=== PATIENT | male | born 1950 | race Two or more races ===

== ENCOUNTER → 2024-06-07 | Outpatient (CLI) | payer BC, MEDICARE, SELFPAY ==
[2024-06-07 13:20] LABS: Basophils # (Auto) 0.1 Thou/mm3 (0.0-0.2); Basophils % (Auto) 1 % (0-2.5); Eosinophils # (Auto) 0.2 Thou/mm3 (0.0-0.5); Eosinophils % (Auto) 1 % (0-10); Immature Granulocytes % (Auto) 1 % (0-0); Immature Granulocytes Auto 0.07 Thou/mm3 (0.00-0.00); Lymphocytes % (Auto) 19 % (10-50); Mean Corpuscular HGB Conc 33.3 g/dl (31.0-37.0); Mean Corpuscular Hemoglobin 29.8 pg (25.0-35.0); Mean Corpuscular Volume 89 fL (80-100); Monocytes # (Auto) 0.8 Thou/mm3 (0.0-0.8); Monocytes % (Auto) 8 % (0-12); Neutrophils # (Auto) 7.3 Thou/mm3 (1.8-7.7); Neutrophils % (Auto) 70 % (37-80); Nucleated Red Blood Cell % 0 /100 WBC (0); Platelet Count 272 Thou/mm3 (140-440); RDW Standard Deviation 45.8 fL (35.1-43.9); Red Blood Count 4.03 Miln/mm3 (4.50-5.90); White Blood Count 10.5 Thou/mm3 (3.8-10.6)
[2024-06-07 13:35] LABS: Albumin, Serum 4.2 gm/dL (3.4-4.8); Anion Gap 9 (7-16); BUN/Creatinine Ratio 19 Ratio (12-20); Blood Urea Nitrogen 39 mg/dL (9-23); Calcium 9.6 mg/dL (8.3-10.6); Calcium (Corrected) 9.6 mg/dL (8.5-10.1); Carbon Dioxide 22.5 mMol/L (20.0-31.0); Chloride 108 mMol/L (98-107); Creatinine (Component) 2.1 mg/dL (0.6-1.3); Glucose 207 mg/dL (74-106); Osmolality,Calculated 292 (275-295); Phosphorous 3.3 mg/dL (2.4-5.1); Potassium 4.5 mMol/L (3.4-5.1); Sodium 139 mMol/L (136-145); eGFR 32 See Note
== END | disposition home or self-care (01) ==
PROVIDERS: PCP Family Medicine; Referring Provider Internal Medicine; Visit Provider Internal Medicine Cardiovascular Disease
DX: E11.22 Type 2 diabetes mellitus with diabetic chronic kidney disease (principal); N18.4 Chronic kidney disease, stage 4 (severe); I25.10 Atherosclerotic heart disease of native coronary artery without angina pectoris; E83.42 Hypomagnesemia
CPT/HCPCS: 36415; 80069; 85025

== ENCOUNTER 2024-06-17 10:30 | Emergency (ER) | payer BC, MEDICARE, SELFPAY ==
[2024-06-17 10:48] VITALS: BP 123/73; PULSE 107; RESP 19; TEMP 37.1; O2SAT 94
[2024-06-17 11:22] VITALS: BMI 32.8
--- NOTE | 2024-06-17 11:39 | EKG_ITS ---
[facility] Test Date: 2024-06-17 Pat Name: KEVAN LARSEN Department: Room: - Gender: Male Ldr Rn: : 1950 Requested By: Pablo Allen ([facility]) Order Number: [id number] Reading MD: Pablo Allen ([facility]) Measurements Intervals [place] Rate: 96 P: [place]: QRS: -22 QRSD: 92 T: 17 QT: 364 QTc: 460 Interpretive Statements SUPRAVENTRICULAR RHYTHM BORDERLINE LEFT AXIS DEVIATION [QRS AXIS < -20] POSSIBLE LEFT VENTRICULAR HYPERTROPHY [VOLTAGE CRITERIA PLUS LAE OR QRS WIDENING] NONSPECIFIC ST & T-WAVE ABNORMALITY Compared to ECG 04/07/2024 07:34:01 Supraventricular rhythm now present T-wave abnormality now present Sinus tachycardia no longer present ST (T wave) deviation no longer present /store/S0/[id number]/[id number].pdf
--- NOTE | 2024-06-17 11:39 | XR_ITS ---
Examination: PA lateral chest 2 views Technique: Upright PA lateral chest 2 views Exam date and time: June 17, 2024 1148 hrs. Indications: Coughing beginning one week ago. Findings: Early heart failure Mild enlargement cardiac contour Prominent vascular congestion Early septal edema at the lung bases with fluid in the fissures on the lateral view Transvenous dual-chamber bipolar cardiac leads satisfactory position Impression: Early heart failure
--- NOTE | 2024-06-17 11:39 | PD.EDRME ---
Rapid Medical Screening Exam RME Arrival date/time: 06/17/24 10:30 73-year-old male with past medical history of CAD, hyperlipidemia, diabetes, and pacemaker presents emergency department complaining of shortness of breath for several days. Chief Complaint: Shortness of Breath/Dyspnea Time Seen by Provider: 06/17/24 11:34 Vital signs: Vital Signs Temperature 98.7 F 06/17/24 10:48 Pulse Rate 107 H 06/17/24 10:48 Respiratory Rate 19 06/17/24 10:48 Blood Pressure 123/73 06/17/24 10:48 Pulse Oximetry (%) 94 L 06/17/24 10:48 Oxygen Delivery Method Room Air 06/17/24 10:48 Vital signs reviewed by provider: Yes
[2024-06-17 12:41] LABS: Basophils # (Auto) 0.1 Thou/mm3 (0.0-0.2); Basophils % (Auto) 1 % (0-2.5); Eosinophils # (Auto) 0.2 Thou/mm3 (0.0-0.5); Eosinophils % (Auto) 2 % (0-10); Hematocrit 34.5 % (41.0-53.0); Hemoglobin 11.3 g/dL (13.5-16.0); Immature Granulocytes % (Auto) 1 % (0-0); Lymphocytes % (Auto) 10 % (10-50); Mean Corpuscular HGB Conc 32.8 g/dl (31.0-37.0); Mean Corpuscular Hemoglobin 29.3 pg (25.0-35.0); Mean Corpuscular Volume 89 fL (80-100); Monocytes % (Auto) 9 % (0-12); Neutrophils % (Auto) 77 % (37-80); Nucleated Red Blood Cell % 0 /100 WBC (0); Platelet Count 311 Thou/mm3 (140-440); RDW Standard Deviation 46.8 fL (35.1-43.9); Red Blood Count 3.86 Miln/mm3 (4.50-5.90); White Blood Count 10.4 Thou/mm3 (3.8-10.6)
[2024-06-17 12:56] LABS: Alanine Aminotransferase 29 U/L (10-49); Albumin, Serum 4.2 gm/dL (3.4-4.8); Albumin/Globulin Ratio 1.4 (1.2-2.2); Alkaline Phosphatase 117 U/L (46-116); Anion Gap 6 (7-16); Aspartate Amino Transferase 14 U/L (0-34); BUN/Creatinine Ratio 16 Ratio (12-20); Blood Urea Nitrogen 32 mg/dL (9-23); Calcium 9.7 mg/dL (8.3-10.6); Calcium (Corrected) 9.7 mg/dL (8.5-10.1); Carbon Dioxide 25.6 mMol/L (20.0-31.0); Chloride 105 mMol/L (98-107); Estimated Creatinine Clearance 42.7 mL/min (>60); Glucose 281 mg/dL (74-106); Magnesium 1.7 mg/dL (1.6-2.6); Osmolality,Calculated 290 (275-295); Potassium 4.7 mMol/L (3.4-5.1); Sodium 137 mMol/L (136-145); Total Protein 7.2 gm/dL (5.7-8.2); eGFR 34 See Note
[2024-06-17 13:01] LABS: INR 1.1 (0.9-1.3); Partial Thromboplastin Time 29.2 Seconds (22.0-36.0); Prothrombin Time 11.7 Seconds (9.0-12.2); Troponin I 0.202 ng/mL (0.0-0.045)
[2024-06-17 13:03] LABS: B-Type Natriuretic Peptide 282 pg/mL (0-100)
[2024-06-17 13:11] LABS: Collection Type, Urine Clean Catch
--- NOTE | 2024-06-17 13:27 | PD.EDSOB ---
ED SOB =RME/HPI General Chief Complaint: Shortness of Breath/Dyspnea Stated Complaint: SOB, CONSTANT COUGHIN Time Seen by Provider: 06/17/24 11:34 Arrival date/time: 06/17/24 10:30 RME / HPI RME / HPI Narrative: 06/17/24 10:30 HPI Patient: 73-year-old male with a past medical history of coronary artery disease (CAD), chronic kidney disease (CKD), hyperlipidemia, diabetes, and a pacemaker. Chief Complaint: Shortness of breath (SOB) for several days. History: The patient presents to the emergency department with complaints of shortness of breath and orthopnea (difficulty breathing when lying flat) for several days. The patient has been followed by Dr. Hernandez in the past for heart failure management. He reports that he has been out of his heart failure medication Bumetanide 0.5 mg BID for the past week. Was recommended to stop Entresto 2 months ago. Denies any chest pain, fevers, chills, nausea, vomiting, diarrhea, constipation, or urinary symptoms. He reports increased swelling of his legs. Physical examination in the emergency department is unremarkable except for the findings related to his heart failure. Review of Symptoms (ROS): Cardiovascular: Increased shortness of breath, orthopnea, and leg swelling. Respiratory: Shortness of breath. Gastrointestinal: Denies nausea, vomiting, diarrhea, and constipation. Genitourinary: Denies urinary symptoms. General: Denies fevers and chills. Medications: Out of Bumetanide. Related Data Home Medications ?Medication ?Instructions ?Recorded ?Confirmed linagliptin 5 mg tablet (Tradjenta) 5 mg PO QDAY ##0 03/10/17 11/06/23 atorvastatin 80 mg tablet 80 mg PO QDAY 07/15/22 11/06/23 duloxetine 60 mg capsule,delayed 60 mg PO QDAY 07/15/22 11/06/23 release sacubitril 24 mg-valsartan 26 mg 1 tab PO BID 07/15/22 11/06/23 tablet (Entresto) semaglutide 0.25 mg or 0.5 mg (2 0.5 mg subcut QWEEK 07/15/22 11/06/23 mg/1.5 mL) subcutaneous pen injector (Ozempic) ticagrelor 90 mg tablet (Brilinta) 90 mg PO BID 12/28/22 04/20/24 aspirin 81 mg tablet,delayed 81 mg PO QDAY 09/28/22 11/06/23 release metoprolol succinate 50 mg 50 mg PO QDAY 09/28/22 11/06/23 tablet,extended release 24 hr bumetanide 1 mg tablet 1 mg PO QDAY 11/06/23 11/06/23 ferrous sulfate 325 mg (65 mg 325 mg PO QDAY 11/06/23 11/06/23 iron) tablet Previous Rx's ?Medication ?Instructions ?Recorded bumetanide 1 mg tablet 0.5 mg (1/2 x 1 mg) PO QDAY #30 06/17/24 tabs Allergies Allergy/AdvReac Type Severity Reaction Status Date / Time codeine Allergy Hallucinati Verified 04/07/24 07:18 ng Review of Systems Review of Systems Narrative Review of Systems: Gen: No fever, no chills, no weight loss EYES: No discharge, no visual changes, no pain HEENT: No ear pain, no congestion, no sore throat PULM: + shortness of breath, no cough, no congestion CV: No chest pain, no dyspnea on exertion, no palpitations GI: No nausea, no vomiting, no diarrhea, no pain, no constipation : No frequency, no urgency, no dysuria Musc/skel: No joint pain, no back pain Skin: No rash Psyc: No hallucinations, no depression Heme/Lymph: No easy bleeding or bruising tendencies Neuro: No weakness, no headache Past Medical History Past Medical History CARDIAC: Positive Cardiac Disorders, Cardiac Arrhythmia, Angina, Coronary Artery Disease, Congestive Heart Failure, Cardiomyopathy, Edema and Hypertension GASTROINTESTINAL: Positive Obesity GENITOURINARY: Positive Renal Disease MUSCULOSKELETAL: Positive Fractures ENDOCRINE: Positive Diabetes Mellitus Type 2 OTHER HISTORY: Positive Hospitalization Surgical History SURGICAL: Positive Cardiac Surgery, Coronary Stent, Pacemaker and Auto Implanted Cardiovert Defib Social History SMOKING STATUS: Never smoker ED Exam Narrative Physical exam: GEN. APPEARANCE: The patient is alert awake oriented X-3 in mild distress, lying down comfortably, does not look ill/toxic. Patient has good eye contact. Patient is cooperative. VITALS: All vitals were reviewed and the pulse ox is 94% on room air which is normal according to my interpretation. HEENT: Normocephalic, atraumatic. Pupils are equal and reactive. Oral mucosa is moist. Patent Nares NECK: Supple, nontender, no thyromegaly, no meningismus, no JVD, no step offs CHEST: Symmetrical, atraumatic, and with equal expansion , Nontender on palpation no deformity and no crepitus. CARDIOVASCULAR: Heart regular rhythm no murmur or gallop rub or extra beats. LUNGS: Clear to auscultation bilaterally with symmetrical chest rise. No laboring tachypnea or wheezing. No intercostal subcostal retraction. No rales and no rhonchi. ABDOMEN: Soft, flat, nontender to palpation, no guarding or rebound tenderness. There are no abnormal masses palpated. Active and normal bowel sounds. EXTREMITIES: 1+ pitting edema bilateral lower extremities. Nontender. No cyanosis. Patient is able to move all 4 extremities well, with full ROM and good CSM. SKIN: Warm and dry, no jaundice or rashes noted. MUSCULOSKELETAL: No lubar or midline bony tenderness. There is no CVA tenderness. No paraspinal muscle spasm or tenderness. NEURO: Patient is CONTRERAS x 4, Cranial nerves II through XII grossly intact. There is no focal neurologic deficits noted. GCS is 15, PNS and [employer] appear grossly intact. PSYCHIATRIC: Patient is in normal mood and affect, cooperative, no SI or HI or hallucinations. Course Quality Measures none Orders Category Date Time Status Bedside COVID-19 Antigen Test NOW Care 06/17/24 11:39 Active Bedside Influenza A&B Antigen Test NOW Care 06/17/24 11:39 Completed EKG (ED ONLY) *Do not use* NOW Care 06/17/24 11:39 Completed EKG (ED Only) Stat Exams 06/17/24 11:39 Draft XR chest 2V Stat Exams 06/17/24 11:39 Completed B-Type Natriuretic Peptide Stat Lab 06/17/24 12:01 Completed CBC Stat Lab 06/17/24 12:01 Completed Comprehensive Metabolic Panel Stat Lab 06/17/24 12:01 Completed Drug Screen,Urine Stat Lab 06/17/24 12:28 Completed Magnesium Stat Lab 06/17/24 12:01 Completed Partial Thromboplastin Time Stat Lab 06/17/24 12:01 Completed Prothrombin Time with INR Stat Lab 06/17/24 12:01 Completed Troponin I Stat Lab 06/17/24 12:01 Completed Urinalysis Stat Lab 06/17/24 12:28 Completed Bumetanide Inj [Bumex Inj] Med 06/17/24 13:25 Discontinued 2 mg IVP X1 ONE Vital Signs Vital signs: Vital Signs Temperature 98.7 F 06/17/24 10:48 Pulse Rate 107 H 06/17/24 10:48 Respiratory Rate 19 06/17/24 10:48 Blood Pressure 123/73 06/17/24 10:48 Pulse Oximetry (%) 94 L 06/17/24 10:48 Oxygen Delivery Method Room Air 06/17/24 10:48 Shortness of Breath / Dyspnea MDM Narrative MDM Narrative:: [facility] EKG Findings: The patient's EKG is nonischemic. Troponin Levels: Troponin is slightly elevated compared to his baseline, but the patient is not experiencing any chest pain. Treatment: The patient was diuresed in the emergency department with 2 mg of Bumetanide and reports feeling much better. Cardiology Consultation: Attempts to contact Dr. Hernandez, the patient's tumor registrar, were unsuccessful due to the holiday weekend. Consulted with Dr. House, who agreed that the slightly elevated troponin is not a major concern and the patient can be discharged. Discharge Plan: The patient will be discharged with a new prescription for Bumetanide. His creatinine levels are better than his baseline. Chest x-ray findings are consistent with early congestive heart failure (CHF). Patient data External records reviewed:: [facility] previous records Clinical information provided by:: patient Social determinants that could affect healthcare access:: none Patient has the following chronic illnesses:: CHF, hypertension, diabetes How is presenting disease/condition affected by chronic disease/condition?: caused by Evaluation data The following diagnostics were reviewed and interpreted by me:: lab results, radiology exam(s) and EKG tracing(s) Lab and/or radiology exams considered but not ordered:: See [facility] Interpretation Summary: See [facility] Medications / Prescriptions Medications or Prescriptions considered but not ordered:: Not applicable Medication administrations:: Medication Administration History Discontinued Medications Bumetanide (Bumetanide Inj 0.25 Mg/Ml Vial 4 Ml) 2 mg IVP X1 ONE Stop: 06/17/24 13:26 Last Admin: 06/17/24 13:39 Dose: 2 mg Documented By: MP Noted Consultations Consultation(s) initiated? (list below): Yes Consultation #1 (Physician, Specialty, Details): See above Diagnosis Shortness of Breath Differential Diagnosis: acute exacerbation of chronic obstructive airways disease and congestive heart failure Most likely diagnosis given after review of the tests above:: CHF exacerbation Admission Indicated Admission indicated?: not indicated Admission Request Was there a request for admission?: No Disposition Plan Disposition Plan: Discharge Discharge Attestation Discharge Attestation: The patient and all family members were given an opportunity to ask questions and understood the discharge instructions. Discharge instructions specifically effects, indications for sooner follow up or return to the emergency department, and the expected course of current diagnosis. Patient condition: Stable Discharge Plan Plan Patient Disposition: HOME (Self Care) Patient condition on transfer: Stable Prescriptions/Referrals Prescriptions/Med Rec: New bumetanide 1 mg tablet 0.5 mg PO QDAY Qty: 30 0RF No Action Tradjenta 5 MG tablet 5 mg PO QDAY Qty: 0 bumetanide 1 mg tablet 1 mg PO QDAY Patient Comments: take 1 tablet by mouth twice a day ferrous sulfate 325 mg (65 mg iron) Tablet 325 mg PO QDAY atorvastatin 80 mg tablet 80 mg PO QDAY duloxetine 60 mg capsule,delayed release(DR/EC) 60 mg PO QDAY Brilinta 90 mg tablet 90 mg PO BID Entresto 24-26 mg tablet 1 tab PO BID Patient Comments: take 1 tablet by mouth twice a day Ozempic 0.25 mg or 0.5 mg(2 mg/1.5 mL) pen injector 0.5 mg SUBCUT QWEEK Patient Comments: inject 0.5 milligrams subcutaneously every week metoprolol succinate 50 mg tablet extended release 24 hr 50 mg PO QDAY aspirin 81 mg Tablet,Delayed Release (Dr/Ec) 81 mg PO QDAY Referrals: Dre Leonard MD [Primary Care Provider] - In 1 week Problem List Clinical Impression: Congestive heart failure Patient/Caregiver Discharge Instructions Education Materials: Coping with Heart Failure Print Language: Nauruan Stand Alone Forms: [facility]sa Award Info., Patient Portal Info Letter
[2024-06-17 13:30] VITALS: BP 145/80; PULSE 94; RESP 22; TEMP 37.1; O2SAT 95
[2024-06-17 13:39] VITALS: BP 145/80; PULSE 97
[2024-06-17] MEDS: BUMETANIDE INJ 0.25 MG/ML VIAL 4 ML 2 MG IVP (13:39)
[2024-06-17 13:58] LABS: Bacteria,Urine 3+; Bilirubin,Urine Negative (Negative); Blood,Urine Negative (Negative); Clarity,Urine Turbid (Clear/Hazy); Color,Urine Lt-Yellow (Lt Yel-Yel); Glucose, Urine 2+ (Negative); Ketones,Urine Negative (Negative); Leukocyte Esterase,Urine Positive (Negative); Nitrite,Urine Negative (Negative); Protein,Urine 1+ (Neg - Trace); RBC,Urine 6 /hpf (0-3); Specific Gravity,Urine 1.015 (1.001-1.035); Squamous Epithelial Cell,Urine < 1 /hpf (0-5); Urobilinogen,Urine Negative mg/dL (0.0-1.0); WBC,Urine 219 /hpf (0-5)
[2024-06-17 15:01] LABS: Amphetamine/Methamp Scrn,U Negative (Negative); Barbiturate Screen,Urine Negative (Negative); Benzodiazepines Screen,Urine Negative (Negative); Benzoylecgonine Screen, Ur Negative (Negative); Fentanyl Screen,Urine Negative (Negative); Opiate Screen,Urine Negative (Negative); THC Screen,Urine Negative (Negative)
[2024-06-17 15:54] VITALS: BP 119/67; PULSE 95; RESP 15; TEMP 37.3; O2SAT 94
== END 2024-06-17 17:11 | disposition home or self-care (01) ==
PROVIDERS: Emergency Provider Emergency Medicine; PCP Family Medicine
DX: I50.9 Heart failure, unspecified (principal); I25.10 Atherosclerotic heart disease of native coronary artery without angina pectoris; E11.22 Type 2 diabetes mellitus with diabetic chronic kidney disease; N18.9 Chronic kidney disease, unspecified; Z79.85 Long-term (current) use of injectable non-insulin antidiabetic drugs; Z79.84 Long term (current) use of oral hypoglycemic drugs; E78.5 Hyperlipidemia, unspecified
CPT/HCPCS: 36415; 71046; 80053; 80307; 81001; 83735; 83880; 84484; 85025; 85610; 85730; 87400; 87811; 93005; 99284; J3490

== ENCOUNTER 2024-06-22 09:53 | Inpatient (IN) | payer BC, MEDICARE, SELFPAY ==
[2024-06-22] VITALS (13 sets, daily range): BP systolic 125–173; BP diastolic 70–99; PULSE 92–993; RESP 17–88; TEMP 36.7–37.1; O2SAT 90–96; BMI 32.8
--- NOTE | 2024-06-22 11:06 | PD.EDADULT ---
ED General RME/HPI General Chief complaint: Shortness of Breath/Dyspnea Stated complaint: SOB since this morning Time Seen by Provider: 06/22/24 09:57 Arrival date/time: 06/22/24 09:53 RME / HPI RME / HPI narrative: A pleasant 73-year-old male with longstanding history of ischemic cardiomyopathy, chronic systolic heart failure, ICD implantation, s/p multivessel PCI stent placement to left anterior descending artery, presents to the ED on 06/22/24 brought in by family for increasing shortness of breath x4. Patient states that SOB is associated with chest pressure. Patient states the chest pressure started in the morning on 06/22/24. Chest pain was severe and he felt like he was drowning . He failed to take his Bumex for about 3 weeks until this past Wednesday when he got his prescription of Bumex. He did not take his diuretic bc pharmacy did not have it in stock. Patient recently had an ED visit for the same symptoms of shortness of breath on 06/17/24 for not taking his home bumex because he ran out. Patient requires more than 2 pillows at night to sleep. His chest pressure is non-exertional. Patient denies headache, fever, chills, palpitation,nausea, vomiting. Denies radiation to the neck or arms. Allergies: None, medications: Brillanta, metoprolol, aspirin, iron, amlodipine, lisinopril, spironolactone. Family hx: Hypertension and diabetes- mother and father. Surgical hx: AICD and stent placement. Social hx: alcohol use-40 years total (one bottle of wine per week). MD complaint: SOB Onset (ago): day(s) Location: chest Radiation: non-radiation Severity: moderate Consistency: intermittent Relieving factors: none Associated symptoms: cough (dry ) Related Data Home Medications ?Medication ?Instructions ?Recorded ?Confirmed atorvastatin 80 mg tablet 80 mg PO QDAY 07/15/22 07/06/24 semaglutide 0.25 mg or 0.5 mg (2 0.5 mg subcut QWEEK 07/15/22 07/06/24 mg/1.5 mL) subcutaneous pen injector (Ozempic) ferrous sulfate 325 mg (65 mg 325 mg PO QDAY 11/06/23 07/06/24 iron) tablet magnesium oxide 400 mg PO QDAY 07/06/24 07/06/24 Previous Rx's ?Medication ?Instructions ?Recorded spironolactone 25 mg tablet 25 mg PO QDAY 30 days #30 tabs 06/24/24 Allergies Allergy/AdvReac Type Severity Reaction Status Date / Time codeine Allergy Hallucinati Verified 07/06/24 08:09 cinthya Review of Systems Review of Systems Systems Reviewed: All systems reviewed, normal except as documented Past Medical History Past Medical History CARDIAC: Positive Cardiac Disorders, Cardiac Arrhythmia, Angina, Coronary Artery Disease, Congestive Heart Failure, Cardiomyopathy, Edema and Hypertension GASTROINTESTINAL: Positive Obesity GENITOURINARY: Positive Renal Disease MUSCULOSKELETAL: Positive Fractures ENDOCRINE: Positive Diabetes Mellitus Type 2 OTHER HISTORY: Positive Hospitalization Surgical History SURGICAL: Positive Cardiac Surgery, Coronary Stent, Pacemaker and Auto Implanted Cardiovert Defib Social History SMOKING STATUS: Never smoker ED Exam Narrative Physical exam: GENERAL APPEARANCE: generally well-appearing, no acute distress on 3 L NC. HEENT: NC, AT. MMM. EOMI, clear conjunctiva, oropharynx clear. NECK: Supple without lymphadenopathy. No stiffness or restricted ROM. HEART: Tachycardia, normal S1/S1, no m/r/g. +JVD. LUNGS: CTAB, moving air well. No wheezes are heard. Diminished crackles lower lungs b/l. ABDOMEN: Soft, nontender, nondistended. BACK: No midline C/T/L spine pain or deformity. EXTREMITIES: Without cyanosis, clubbing. No edema. NEUROLOGICAL: Alert and oriented, moving all 4 extremities. ROM intact. Skin: Warm and dry,Vitiligo Course Quality Measures none Orders Category Date Time Status EKG (ED ONLY) *Do not use* NOW Care 06/22/24 09:57 Completed Consult to Cardiology Stat Cons 06/22/24 16:05 Ordered CXR2 [XR chest 2V] Stat Exams 06/22/24 15:58 Completed EKG (ED Only) Stat Exams 06/22/24 09:57 Ordered Comprehensive Metabolic Panel Stat Lab 06/22/24 11:38 Completed Troponin I Stat Lab 06/22/24 11:38 Completed Furosemide Inj [Lasix Inj] Med 06/22/24 11:38 Discontinued 40 mg IVP X1 ONE Furosemide Inj [Lasix Inj] Med 06/22/24 13:16 Discontinued 40 mg IVP X1 ONE Nitroglycerin Oint 2% [Nitro-paste Oint 2%] Med 06/22/24 16:03 Discontinued 1 inch TOP X1 ONE Vital Signs Vital signs: Vital Signs Temperature 98.7 F 06/22/24 10:27 Pulse Rate 100 06/22/24 10:27 Respiratory Rate 24 H 06/22/24 10:27 Blood Pressure 127/72 06/22/24 10:27 Pulse Oximetry (%) 92 L 06/22/24 10:27 Oxygen Delivery Method Nasal Cannula 06/22/24 10:27 Oxygen Flow Rate 4 06/22/24 10:27 [facility] Patient data External records reviewed:: None Clinical information provided by:: patient Social determinants that could affect healthcare access:: none Patient has the following chronic illnesses:: 73-year-old male with longstanding history of ischemic cardiomyopathy, chronic systolic heart failure, ICD implantation, s/p multivessel PCI stent placement to left anterior descending artery How is presenting disease/condition affected by chronic disease/condition?: exacerbated by Evaluation data The following diagnostics were reviewed and interpreted by me:: lab results Lab and/or radiology exams considered but not ordered:: N/A Interpretation Summary: Troponin 0.075. Creatinine 2.2. CXR pending Medications Medications considered but not ordered:: None Medication administrations:: Medication Administration History Discontinued Medications Acetaminophen (Acetaminophen 325 Mg Tablet) 650 mg PO Q6H PRN PRN Reason: Fever >100.4 Stop: 07/22/24 16:52 Acetaminophen (Acetaminophen 325 Mg Tablet) 650 mg PO Q6H PRN PRN Reason: PAIN SCALE 1-3 (mild Stop: 07/22/24 16:52 Amlodipine Besylate (Amlodipine Besylate 5 Mg Tablet) 5 mg PO DAILY [facility] Stop: 07/22/24 17:29 Last Admin: 06/24/24 09:32 Dose: 5 mg Documented By: Admin: 06/23/24 09:09 Dose: 5 mg Documented By: Admin: 06/22/24 20:06 Dose: 5 mg Documented By: CHRISTINA Comments: Given late 2/T being ordered on previous shift. Amoxicillin (Amoxicillin 250 Mg Capsule) 250 mg PO TID [facility] Stop: 06/27/24 09:14 Amoxicillin (Amoxicillin 250 Mg Capsule) 500 mg PO TID [facility] Stop: 06/30/24 09:14 Last Admin: 06/24/24 13:29 Dose: 500 mg Documented By: Admin: 06/24/24 05:13 Dose: 500 mg Documented By: Admin: 06/23/24 21:23 Dose: 500 mg Documented By: Admin: 06/23/24 13:39 Dose: Not Given Documented By: ALEKS Non-Admin Reason: first dose started at 1127 Admin: 06/23/24 11:27 Dose: 500 mg Documented By: ALEKS Aspirin (Aspirin Ec 81 Mg Tabec) 81 mg PO DAILY [facility] Stop: 07/22/24 17:44 Last Admin: 06/24/24 09:32 Dose: 81 mg Documented By: Admin: 06/23/24 09:09 Dose: 81 mg Documented By: Admin: 06/22/24 20:05 Dose: 81 mg Documented By: CHRISTINA Comments: Given late 2/T being ordered on previous shift. Atorvastatin Calcium (Atorvastatin Calcium 20 Mg Tablet) 80 mg PO HS [facility] Stop: 07/22/24 20:59 Last Admin: 06/23/24 20:11 Dose: 80 mg Documented By: Admin: 06/22/24 20:06 Dose: 80 mg Documented By: CHRISTINA Bumetanide (Bumetanide Inj 0.25 Mg/Ml Vial 4 Ml) 1 mg IVP BID [facility] Stop: 07/22/24 20:59 Last Admin: 06/23/24 09:10 Dose: 1 mg Documented By: Admin: 06/22/24 20:07 Dose: 1 mg Documented By: CHRISTINA Bumetanide (Bumetanide Inj 0.25 Mg/Ml Vial 4 Ml) 2 mg IVP QDAY [facility] Stop: 07/24/24 08:59 Bumetanide (Bumetanide 0.5 Mg Tablet) 2 mg PO DAILY [facility] Stop: 07/24/24 08:59 Last Admin: 06/24/24 09:31 Dose: 2 mg Documented By: LOTTIE Dextrose (Dextrose 50%-Water Inj 50 Ml Syringe) 25 ml IV Q15MIN PRN PRN Reason: BG 50-70 responsive npo pt Stop: 07/22/24 17:47 Dextrose (Dextrose 50%-Water Inj 50 Ml Syringe) 50 ml IV Q15MIN PRN PRN Reason: BG <50 OR BG <70 & pt unresponsive Stop: 07/22/24 17:47 Duloxetine HCl (Duloxetine Hcl 30 Mg Capsule) 60 mg PO QDAY [facility] Stop: 07/22/24 17:44 Last Admin: 06/23/24 09:09 Dose: 60 mg Documented By: Admin: 06/22/24 20:04 Dose: 60 mg Documented By: CHRISTINA Comments: Given late 2/T being ordered on previous shift. Duloxetine HCl (Duloxetine Hcl 30 Mg Capsule) 30 mg PO BID [facility] Stop: 07/24/24 08:59 Last Admin: 06/24/24 09:31 Dose: 30 mg Documented By: LOTTIE Furosemide (Furosemide Inj 10 Mg/Ml 4ml Vial) 40 mg IVP X1 ONE Stop: 06/22/24 11:39 Last Admin: 06/22/24 12:41 Dose: 40 mg Documented By: MIGUEL Furosemide (Furosemide Inj 10 Mg/Ml 4ml Vial) 40 mg IVP X1 ONE Stop: 06/22/24 13:17 Last Admin: 06/22/24 13:48 Dose: 40 mg Documented By: NAVEED Furosemide (Furosemide Inj 10 Mg/Ml 4ml Vial) 40 mg IVP BID [facility] Stop: 07/22/24 20:59 Glucagon (Glucagon Inj 1 Mg Vial) 1 mg IM Q15MIN PRN PRN Reason: BG <70, and no IV access Heparin Sodium (Porcine) (Heparin Sod Inj 5000 Unit/Ml Vial) 5,000 unit SC Q8HR [facility] Stop: 07/07/24 05:59 Last Admin: 06/24/24 13:30 Dose: 5,000 unit Documented By: LOTTIE Co-signed By: VL Admin: 06/24/24 05:13 Dose: 5,000 unit Documented By: Co-signed By: YVES Admin: 06/23/24 21:24 Dose: 5,000 unit Documented By: Co-signed By: BR Admin: 06/23/24 13:35 Dose: 5,000 unit Documented By: ALEKS Co-signed By: VA Admin: 06/23/24 05:05 Dose: 5,000 unit Documented By: CHRISTINA Co-signed By: NL Insulin Human Lispro (Insulin Lispro (Admelog) 1 Unit/0.01 Ml Unit) 0 unit SC ACHS [facility]; Protocol Stop: 07/22/24 20:59 Last Admin: 06/24/24 17:45 Dose: Not Given Documented By: LOTTIE Non-Admin Reason: Patient Refused Admin: 06/24/24 12:12 Dose: 6 unit Documented By: LOTTIE Co-signed By: JOYCE Admin: 06/24/24 07:54 Dose: 4 unit Documented By: LOTTIE Co-signed By: JOYCE Admin: 06/23/24 20:17 Dose: 6 unit Documented By: Co-signed By: JOANNE Admin: 06/23/24 17:37 Dose: 4 unit Documented By: ALEKS Co-signed By: PP Admin: 06/23/24 12:14 Dose: 4 unit Documented By: ALEKS Co-signed By: ER Admin: 06/23/24 07:33 Dose: 2 unit Documented By: ALEKS Co-signed By: PP Admin: 06/22/24 20:14 Dose: 6 unit Documented By: CHRISTINA Co-signed By: YESSICA Magnesium Hydroxide (Milk Of Magnesia Susp 30 Ml Udc) 30 ml PO QDAY PRN; Protocol PRN Reason: CONSTIPATION Stop: 07/22/24 16:52 Nitroglycerin (Nitroglycerin Oint 2% 1 Inch Packet) 1 inch TOP X1 ONE Stop: 06/22/24 16:04 Last Admin: 06/22/24 16:11 Dose: 1 inch Documented By: MIGUEL Pantoprazole Sodium (Pantoprazole 40 Mg Tablet) 40 mg PO QDAY [facility] Stop: 07/23/24 08:59 Last Admin: 06/24/24 09:32 Dose: 40 mg Documented By: Admin: 06/23/24 09:09 Dose: 40 mg Documented By: ALEKS Sacubitril/Valsartan (Sacubitril 24 Mg/Valsartan 26 Mg Tablet) 1 tab PO BID [facility] Stop: 07/23/24 20:59 Last Admin: 06/24/24 09:32 Dose: 1 tab Documented By: Admin: 06/23/24 20:11 Dose: 1 tab Documented By: Sacubitril/Valsartan (Sacubitril 24 Mg/Valsartan 26 Mg Tablet) 1 tab PO X1 ONE Stop: 06/24/24 17:34 Last Admin: 06/24/24 17:36 Dose: 1 tab Documented By: LOTTIE Spironolactone (Spironolactone 25 Mg Tablet) 25 mg PO QDAY [facility] Stop: 07/23/24 08:59 Last Admin: 06/24/24 09:32 Dose: 25 mg Documented By: Admin: 06/23/24 09:10 Dose: 25 mg Documented By: ALEKS Ticagrelor (Ticagrelor 90 Mg Tablet) 90 mg PO BID [facility] Stop: 07/23/24 08:59 Last Admin: 06/24/24 09:32 Dose: 90 mg Documented By: Admin: 06/23/24 20:10 Dose: 90 mg Documented By: Admin: 06/23/24 09:13 Dose: 90 mg Documented By: ALEKS Lasix Consultations Consultation(s) initiated? (list below): Yes Consultation #1 (Physician, Specialty, Details): Dr. Hernandez, cardiology Diagnosis Differential Diagnosis ED Complaint MDM: pneumonia Most likely diagnosis given after review of the tests above:: CHF exacerbation Admission Indicated Admission indicated?: not indicated Explain why admission is indicated or not indicated:: Patient was recently in the hospital for similar presentation. He was given bumex. Now giving patient Lasix, patient has good urine output and feels relief. No longer experiences chest pain or dry cough. Therefore, acutely symptom relief is present. However, when taken off the oxygen patient desaturated to 84% and cough returned. Admission Request Was there a request for admission?: No Disposition Plan Disposition Plan: Admit Medical Decision Making MDM Narrative MDM Narrative: 73-year-old male with longstanding history of ischemic cardiomyopathy, chronic systolic heart failure, ICD implantation, s/p multivessel PCI stent placement to left anterior descending artery, presents to the ED on 06/22/24 brought in by family for increasing shortness of breath x4. Patient states that SOB is associated with chest pressure. Patient states the chest pressure started in the morning on 06/22/24. Chest pain was severe and he felt like he was drowning . Patient requires more than 2 pillows at night to sleep. His chest pressure is non-exertional. Symptomatic heart failure exacerbation is his current presentation. Patient is given lasix today and he has good urine output with symptomatic relief in chest pressure and cough-- both now resolving. Patient desaturated to 84% on room air and cough returned. Differential Diagnosis Differential Diagnosis: pneumonia Medical Records Medical records reviewed: Yes I reviewed the patient's medical records. Lab Data Lab results reviewed: Yes I reviewed the patient's lab results. 06/24/24 04:51 06/24/24 04:51 Labs: Lab Results 06/22/24 Range/Units 11:38 Sodium 138 (136-145) mMol/L Potassium 4.0 (3.4-5.1) mMol/L Chloride 104 (98-107) mMol/L Carbon Dioxide 24.8 (20.0-31.0) mMol/L Anion Gap 9 (7-16) BUN 29 H (9-23) mg/dL Creatinine 2.2 H (0.6-1.3) mg/dL Estim Creat Clear Calc 38.8 L (>60) mL/min eGFR 31 L (60 - ) See Note BUN/Creatinine Ratio 13 (12-20) Ratio Glucose 227 H (74-106) mg/dL Calculated Osmolality 288 (275-295) Calcium 9.3 (8.3-10.6) mg/dL Corrected Calcium 9.3 (8.5-10.1) mg/dL Total Bilirubin 1.0 (0.3-1.2) mg/dL AST 10 (0-34) U/L ALT 18 (10-49) U/L Alkaline Phosphatase 105 (46-116) U/L Troponin I 0.075 H* (0.0-0.045) ng/mL Total Protein 7.0 (5.7-8.2) gm/dL Albumin 4.0 (3.4-4.8) gm/dL Globulin 3.0 (2.3-3.5) gm/dL Albumin/Globulin Ratio 1.3 (1.2-2.2) Discharge Plan Plan Patient Disposition: Admit Acute Care w/in Hospital Patient condition on transfer: Stable Problem List Clinical Impression: CHF (congestive heart failure) Patient/Caregiver Discharge Instructions Discharge Activity: activity as tolerated MD Attestation MD Attestation The patient was seen by the PGY-2. I, the supervising physician, also encountered and examined the patient and remained present during the residents ER encounter. Working with the PGY-2 the work-up, treatment, medical decision making, and documentation was formulated. I agree with the plan and documentation.
[2024-06-22 12:10] LABS: Troponin I 0.075 ng/mL (0.0-0.045)
[2024-06-22] MEDS: FUROSEMIDE INJ 10 MG/ML 4ML VIAL 40 MG IVP ×2 (12:41→13:48)
[2024-06-22 13:30] LABS: Alanine Aminotransferase 18 U/L (10-49); Albumin/Globulin Ratio 1.3 (1.2-2.2); Alkaline Phosphatase 105 U/L (46-116); Anion Gap 9 (7-16); Aspartate Amino Transferase 10 U/L (0-34); BUN/Creatinine Ratio 13 Ratio (12-20); Blood Urea Nitrogen 29 mg/dL (9-23); Calcium 9.3 mg/dL (8.3-10.6); Calcium (Corrected) 9.3 mg/dL (8.5-10.1); Carbon Dioxide 24.8 mMol/L (20.0-31.0); Chloride 104 mMol/L (98-107); Creatinine (Component) 2.2 mg/dL (0.6-1.3); Estimated Creatinine Clearance 38.8 mL/min (>60); Glucose 227 mg/dL (74-106); Osmolality,Calculated 288 (275-295); Sodium 138 mMol/L (136-145); eGFR 31 See Note
--- NOTE | 2024-06-22 15:58 | XR_ITS ---
Examination: AP chest single view Technique one AP portable upright chest single view Exam date and time: 2023 at 1620 hours Comparison June 17, 2024 INDICATIONS: Onset SOB today. FINDINGS: Pneumonia left base obscuring detail left hemidiaphragm Cardiac lead satisfactory position Mild prominence left ventricle Mild vascular congestion IMPRESSION: Left base pneumonia
[2024-06-22] MEDS: NITROGLYCERIN OINT 2% 1 INCH PACKET TOP (16:11)
--- NOTE | 2024-06-22 17:00 | ESHP_ITS ---
Documentation for date of: 06/22/24 [facility] History of Present Illness History of present illness: This is a 69-year-old male with PMHx of dilated cardiomyopathy, HFrEF EF 25% 10/2023, ICD implantation, CAD s/p multiple stenting, CKD stage IIIB, presented to ED with 4 days of SOB, associated orthopnea, requiring 2 pillows. Patient admits to dry cough with pleuritic chest pain over the last few days which has resolvedy. Patient on home BUMEX 1 mg daily, however his pharmacy has been out for the last month. Recently presented to ED on 05/25/2024 with similar symptoms, patient was diuresed and sent home on BUMEX which she has been taking daily. However he is experiencing persistent SOB. Denies fever, headaches, cardiogenic chest pain, productive cough, nausea, vomiting, diarrhea, or urinary symptoms. Denies tobacco use. Previously social drinker, quit alcohol 5 years ago. Denies drug use. ED course Afebrile, BP 127/72, HR 100, RR 24, satting 92 on 4 L NC, found desatting to 80s on room air BUN 29, creatinine 2.2 (near baseline), GLUCOSE 227, BNP 282, troponin 0.202 then 0.075 No leukocytosis, hemoglobin 11.3 near baseline Patient started on diuresis, with good urine output. Chest x-ray was taken after diuresis without pleural effusion or congestion. Cardiology, Dr. Hernandez, was consulted who recommended admission for aggressive diuresis given persistent shortness of breath on room air. Will admit patient for further management. Exam Vital Signs Temp Pulse Resp BP Pulse Ox O2 Del Method O2 Flow Rate 98.4 F 102 H 20 134/76 H 93 L Nasal Cannula 4 06/22/24 15:28 06/22/24 16:11 06/22/24 15:28 06/22/24 16:11 06/22/24 15:28 06/22/24 15:28 06/22/24 15:28 FiO2 4 06/22/24 11:17 Results: Labs 06/23/24 04:44 06/22/24 11:38 Labs: BMP 06/22/24 11:38 Sodium 138 Potassium 4.0 Chloride 104 Carbon Dioxide 24.8 BUN 29 H Creatinine 2.2 H Glucose 227 H Calcium 9.3 Cardiac Enzymes 06/22/24 Range/Units 11:38 Troponin I 0.075 H* (0.0-0.045) ng/mL Liver Function 06/22/24 Range/Units 11:38 Total Bilirubin 1.0 (0.3-1.2) mg/dL AST 10 (0-34) U/L ALT 18 (10-49) U/L Alkaline Phosphatase 105 (46-116) U/L Albumin 4.0 (3.4-4.8) gm/dL Quality Measures Quality Measures none Advance care planning discussed with:: patient Medications Home Medications and Allergies Home Medications ?Medication ?Instructions ?Recorded ?Confirmed ?Type linagliptin 5 mg tablet (Tradjenta) 5 mg PO QDAY ##0 03/10/17 06/22/24 History atorvastatin 80 mg tablet 80 mg PO QDAY 07/15/22 06/22/24 History duloxetine 60 mg capsule,delayed 60 mg PO QDAY 07/15/22 06/22/24 History release semaglutide 0.25 mg or 0.5 mg (2 0.5 mg subcut QWEEK 07/15/22 06/22/24 History mg/1.5 mL) subcutaneous pen injector ([employer]) ticagrelor 90 mg tablet (Brilinta) 90 mg PO BID 07/15/22 06/22/24 History aspirin 81 mg tablet,delayed 81 mg PO QDAY 09/28/22 06/22/24 History release metoprolol succinate 50 mg 50 mg PO QDAY 09/28/22 06/22/24 History tablet,extended release 24 hr bumetanide 1 mg tablet 1 mg PO QDAY 11/06/23 06/22/24 History ferrous sulfate 325 mg (65 mg 325 mg PO QDAY 11/06/23 06/22/24 History iron) tablet Allergies Allergy/AdvReac Type Severity Reaction Status Date / Time codeine Allergy Hallucinati Verified 04/07/24 07:18 ng Visit Medications Acetaminophen (Acetaminophen 325 Mg Tablet) 650 mg PO Q6H PRN PRN Reason: Fever >100.4 Stop: 07/22/24 16:52 Acetaminophen (Acetaminophen 325 Mg Tablet) 650 mg PO Q6H PRN PRN Reason: PAIN SCALE 1-3 (mild Stop: 07/22/24 16:52 Furosemide (Furosemide Inj 10 Mg/Ml 4ml Vial) 40 mg IVP BID NANI Stop: 07/22/24 20:59 Heparin Sodium (Porcine) (Heparin Sod Inj 5000 Unit/Ml Vial) 5,000 unit SC Q8HR [facility] Stop: 07/07/24 05:59 Magnesium Hydroxide (Milk Of Magnesia Susp 30 Ml Udc) 30 ml PO QDAY PRN; Protocol PRN Reason: CONSTIPATION Stop: 07/22/24 16:52 Pantoprazole Sodium (Pantoprazole 40 Mg Tablet) 40 mg PO QDAY [facility] Stop: 07/23/24 08:59 Discontinued Medications Furosemide (Furosemide Inj 10 Mg/Ml 4ml Vial) 40 mg IVP X1 ONE Stop: 06/22/24 11:39 Last Admin: 06/22/24 12:41 Dose: 40 mg Furosemide (Furosemide Inj 10 Mg/Ml 4ml Vial) 40 mg IVP X1 ONE Stop: 06/22/24 13:17 Last Admin: 06/22/24 13:48 Dose: 40 mg Nitroglycerin (Nitroglycerin Oint 2% 1 Inch Packet) 1 inch TOP X1 ONE Stop: 06/22/24 16:04 Last Admin: 06/22/24 16:11 Dose: 1 inch Assessment & Plan Plan In summary: Patient admitted for CHF exacerbation, and started on LASIX 40 mg IV BID. He has a history of dilated cardiomyopathy, HFrEF EF 25% 10/2023, ICD implantation, CAD s/p multiple stenting, CKD stage IIIB. Dr. Hernandez following, appreciate recommendations. # Acute exacerbation of systolic heart failure, HFrEF EF 25% # Dilated cardiomyopathy # S/p ICD implantation Presented with worsening SOB and orthopnea. Patient has been out of home DIURETICS for 1 month, however restarted his meds 5 days ago but has persistent SOB. In ED patient desatting to 80s on room air CXR after diuresis showed cardiomegaly, without congestion or effusion BNP 282 from 06/17/2024 ? Started BUMEX 1 mg BID ? Resumed home SPIRONOLACTONE 25 mg daily ? Resumed home METOPROLOL SUCCINATE 50 mg daily ? Fluid restriction <1200 cc ? Strict DUGLAS's ? Oxygen as needed ? Cardiac diet ? Trend creatinine # Transient NSTEMI type II # CAD s/p multiple stents # Hyperlipidemia Presented with troponin 0.202, likely demand ischemia Troponin downtrending, now 0.075 Admits to pleuritic chest pain over the last several days, improved Currently denies chest pain TSH 0.34 from 10/2023, A1c 7.4 from 2022, LDL 66 from 2022 Preferred target LDL less than 55 given diabetes and cardiomyopathy ? Telemetry bed ? Resumed home BRILINTA 90 mg daily ? Resumed home ASPIRIN 81 mg daily ? Resumed home ATORVASTATIN 80 mg ? Follow-up lipid panel ? Follow-up TSH ? Follow-up A1c # Primary hypertension # Sinus Tachycardia BP 134/76, HR 102 Tachycardia likely 2/2 oxygen demand Anticipate improving with oxygenation and CHF management ? Resumed home ATORVASTATIN 80 mg ? Resumed home LISINOPRIL 2.5 mg daily ? Resumed home AMLODIPINE 5 mg daily ? Telemetry # Mild JOSÉ ANTONIO on CKD stage IIIb Presented CR 2.2, most recent CR 2.0 from 06/17, however baseline around 2.5 Likely prerenal JOSÉ ANTONIO Anticipate improvement with diuresis ? Daily CBC ? Avoid overdiuresis ? Avoid nephrotoxic agents # Chronic normocytic anemia Likely related to CKD Hemoglobin 11.3, near baseline No signs or symptoms of bleeding ? Daily CBC # T2DM, non-insulin Patient on home TRADJENTA 5 mg daily, diagnosed 4 years ago A1c 7.4 from 2022 ? Holding TRADJENTA ? INSULIN sliding scale ? Follow-up repeat A1c # Anxiety ? Resumed home DULOXETINE 60 mg daily Health maintenance Diet: Cardiac GI prophylaxis: PROTONIX DVT prophylaxis: HEPARIN subcu Antibiotics: Not indicated CODE STATUS: Full code Disposition: Pending SOB improvement Patient case was discussed with attending, Cleveland Gray MD and senior residents Dr. Phoenix and Dr. Hinton. Wandy Henriquez, PGYI L Mr Ruiz is a 69-year-old male with PMHx of dilated cardiomyopathy, HFrEF EF 25% (10/2023), AICD implantation, CAD s/p multiple stenting and CKD stage IIIB. who is admitted for acute decompensation of chronic systolic heart failure, LVEF 25% as of October 2023. Dr Hernandez is consulted and recommendations appreciated. Patient was unable to get his Bumex from his pharmacy. He likely has the exacerbation as he has been off of Bumex for these 3 weeks. NYHA : Stage B , Class II. CXR on 06/17 and today consistent with CHF exacerbation. On oxygen víctor NC. Plan: Started IV Bumex 1mg BID, strict input/output charting, daily weight recording, cardiac low carb diet with fluid restriction to 1.5L Patient examined and case discussed with the team including attending physician. Note reviewed, I agree with the care plan as documented. - Dallas Hinton MD, PGY 2 Attending Provider Attestation/Addendum I reviewed labs, imaging, EKG, home medications and prior available records. Face to face evaluation was performed by me. I have personally examined the patient and discussed assessment and plan with the IM team. I reviewed the resident note and agree with the plan with exceptions as below. 73-year-old male with history of ischemic cardiomyopathy status post AICD, heart failure with a EF of 25%, CAD status post PCI, CKD stage IIIb, who presented with worsening shortness of breath and leg swelling. He was found to have acute hypoxic respiratory failure in the setting of CHF exacerbation. Acute hypoxic respiratory failure: In the setting of CHF exacerbation. Diuresis as below. Wean off oxygen as tolerated. CHF exacerbation: Start IV diuresis. Monitor I's and O's. Cardiology consulted. CKD stage IIIb: Creatinine is close to baseline. Diuresis as above. Monitor kidney function. Avoid nephrotoxins. Renally dosed medications. Elevated troponin: Likely type II non-STEMI in the setting of CHF exacerbation. Management as above. Trend troponin.
--- NOTE | 2024-06-22 17:39 | PC.CC ---
Patient is a 73 year-old male who presents to the hospital for SOB. Karen PORTILLO made [id number] contact with patient. ASW introduced self, role, and reason for visit. Patient appeared alert and oriented to self, location, and situation. Patient was pleasant and engaged in initial assessment.At bedside was patient's , Mindy Ruiz whom patient provided consent to remain in the room during assessment. Patient confirmed information on demographics but reported his physical address is [address] [place] [address]. The patient resides at home with his . 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 Prior to the patient being admitted he was able to complete his own ADLs and [employer] Ind[employer]ently. The patient does not use any DME; however, he did use oxygen from October 2023 until January 2024. The patient receives primary care from Dre [facility] and uses [facility] for prescription medications. The patient's next of Kin is his , Mindy Ruiz. Upond discharge the patient plans to return back home. 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
--- NOTE | 2024-06-22 17:53 | PC.NURSE ---
REPORT GIVEN TO JORDYN AGUILAR, PATIENT WILL TRANSFER TO ROOM 278
[2024-06-22] MEDS: DULoxetine HCL 30 MG CAPSULE 60 MG PO (20:04)
[2024-06-22] MEDS: ASPIRIN EC 81 MG TABEC PO (20:05)
[2024-06-22] MEDS: amLODIPine BESYLATE 5 MG TABLET PO (20:06)
[2024-06-22] MEDS: ATORVASTATIN CALCIUM 20 MG TABLET 80 MG PO (20:06)
[2024-06-22] MEDS: BUMETANIDE INJ 0.25 MG/ML VIAL 4 ML 1 MG IVP (20:07)
[2024-06-22] MEDS: INSULIN LISPRO (AdmeLOG) 1 UNIT/0.01 ML UNIT SC (20:14)
--- NOTE | 2024-06-22 23:59 | ESCONSULT_ITS ---
RE: KEVAN LARSEN : 1950 DATE OF CONSULTATION: 06/22/2024 CONSULTING PHYSICIAN: Hospitalist. REASON FOR CONSULTATION: Evaluation of shortness of breath and congestive heart failure. HISTORY OF PRESENT ILLNESS: The patient is a 73-year-old male with past medical history of ischemic cardiomyopathy, chronic systolic heart failure with ejection fraction of 25%, status post multivessel PCI, stent to right coronary artery, left anterior descending artery, circumflex artery. We also had a distal left main and proximal left anterior descending artery stent placement earlier this year in 11/2023 and history of ICD implantation and he was doing well on maximum medical management until recently. The patient ran out of his diuretic. He was supposed to be on Bumex 3 mg daily. He ran out of diuretic completely about 3 weeks ago and could not get a refill. He kept having increasing shortness of breath, significant weight gain more than 10 pounds or so with worsening of shortness of breath, and congestive heart failure symptoms. He came to the hospital with these symptoms. He did have a cardiac echo in my office showed improvement in LV dysfunction, approximately 40% ejection fraction on cardiac echo. He is feeling a little better. He does not complain of any shortness of breath, but his x-ray showed evidence of pulmonary congestion, but no pleural effusion. There is some infiltrate on the left base as well. The patient also has severe orthopnea and also findings of classic congestive heart failure. His lab data initially showed evidence of elevated creatinine of 2.2. His baseline creatinine is 2.3-2.5 and BUN is 29. Troponin was 0.075. The patient apparently went to emergency room with shortness of breath on 06/17/2024, treated and released, but he kept having shortness of breath despite medical management, but he still did not take any oral diuretics. The patient did have multiple stent placement. All the coronary arteries are stented. RCA, left main, LAD and circumflex artery most recently early in 2023 in November. The patient had a complex PCI of the left main coronary artery and left anterior descending artery. This was performed with Impella device . MEDICATION LIST: The patient normally takes at home bumetanide 1 mg daily and sometimes twice daily. He also takes Tradjenta 5 mg daily, atorvastatin 80 mg daily, duloxetine 60 mg daily, Entresto 24/26 mg 1 tablet twice daily, Ozempic 0.5 mg every 2 weeks, ticagrelor 90 mg twice daily, aspirin 81 mg daily, metoprolol succinate 50 mg daily, and ferrous sulfate daily. PAST MEDICAL HISTORY: Ischemic cardiomyopathy, multiple coronary stents to LAD, circumflex artery, left main and left anterior descending artery, all 4 vessels were stented, status post ICD implantation, diabetes mellitus type 2, and obesity. 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 He does not smoke or drink alcohol. FAMILY HISTORY: Noncontributory. PHYSICAL EXAMINATION: GENERAL: Pleasant male, alert, awake, in no acute distress. VITAL SIGNS: Blood pressure is 125/72, pulse 94, respirations 18, and temperature is normal. HEENT: Head is atraumatic and normocephalic. Eyes normal. ENT normal. NECK: Supple. No JVD. Carotid pulses felt. No bruit. CHEST: Symmetrical. LUNGS: Decreased breath sounds at both bases. HEART: S1 and S2 regular. Few basal rales. ABDOMEN: Thin, obese, somewhat distended, soft. EXTREMITIES: No edema. GENITOURINARY AND RECTAL: Not performed. NEUROLOGIC: Unremarkable. DIAGNOSTIC DATA: Electrocardiogram showed evidence of sinus rhythm, nonspecific ST changes. IMPRESSION: 1. Acutely decompensated chronic systolic heart failure, ejection fraction at baseline 25%-30%. Recent echo showed ejection fraction improved to 40%. 2. Coronary artery disease, status post multivessel stent placement, more recently left main coronary artery stent placement, left anterior descending stent placement in 11/2023 with Impella device. 3. Status post implantable cardioverter defibrillator implantation. 4. Diabetes mellitus. 5. Chronic kidney disease stage III with creatinine clearance of 38. RECOMMENDATIONS AND DISCUSSION: The patient is a very well known to me, 73-year-old male with history of ischemic cardiomyopathy, multivessel stent placement, complex issues, chronic kidney disease, hypertension, obesity, admitted to the hospital with acutely decompensated predominantly congestive heart failure with increasing shortness of breath, orthopnea, paroxysmal nocturnal dyspnea over the last 3 weeks. He ran out of diuretics that appears to be factor. We will recommend aggressive diuretic therapy, IV Bumex and spironolactone to be resumed and resume also Entresto 24/26 mg twice daily. Monitor renal function closely. We would like to thank you for referring patient for cardiovascular evaluation. We will have to follow the patient. The patient also had cardiac echo in my office . I will get the report to be on the chart tomorrow. DT: 22:12:32 TT: 23:29:00 Ref: [id number] - TID: [id number]
[2024-06-23] VITALS (11 sets, daily range): BP systolic 114–127; BP diastolic 66–75; PULSE 85–108; RESP 15–30; TEMP 36–36.6; O2SAT 92–98; BMI 32.8
[2024-06-23] MEDS: HEPARIN SOD INJ 5000 UNIT/ML VIAL SC ×3 (05:05→21:24)
[2024-06-23 05:58] LABS: Basophils # (Auto) 0.1 Thou/mm3 (0.0-0.2); Basophils % (Auto) 1 % (0-2.5); Eosinophils # (Auto) 0.3 Thou/mm3 (0.0-0.5); Eosinophils % (Auto) 3 % (0-10); Immature Granulocytes % (Auto) 1 % (0-0); Immature Granulocytes Auto 0.09 Thou/mm3 (0.00-0.00); Lymphocytes # (Auto) 1.6 Thou/mm3 (1.0-4.8); Lymphocytes % (Auto) 15 % (10-50); Mean Corpuscular HGB Conc 33.3 g/dl (31.0-37.0); Mean Corpuscular Hemoglobin 29.6 pg (25.0-35.0); Mean Corpuscular Volume 89 fL (80-100); Monocytes # (Auto) 1.1 Thou/mm3 (0.0-0.8); Monocytes % (Auto) 10 % (0-12); Neutrophils # (Auto) 7.6 Thou/mm3 (1.8-7.7); Neutrophils % (Auto) 71 % (37-80); Nucleated Red Blood Cell % 0 /100 WBC (0); Platelet Count 301 Thou/mm3 (140-440); RDW Standard Deviation 44.8 fL (35.1-43.9); Red Blood Count 3.72 Miln/mm3 (4.50-5.90); White Blood Count 10.7 Thou/mm3 (3.8-10.6)
[2024-06-23 06:26] LABS: Glucose Estimated Average 189 mg/dL (80-131); Hemoglobin A1C 8.2 % Hgb (4.8-6.0)
[2024-06-23] MEDS: INSULIN LISPRO (AdmeLOG) 1 UNIT/0.01 ML UNIT SC ×4 (07:33→20:17)
--- NOTE | 2024-06-23 08:58 | PD.RESPRO ---
Documentation for date of: 06/23/24 Subjective Subjective Interval history: No acute overnight events. Patient states he is doing well. His shortness of breath has improved, although desatting slightly off of oxygen. Currently on 1 L. Denies fever, chills, headaches, chest pain, sob, cough, GI or urinary symptoms. Exam Vital Signs Temp Pulse Resp BP Pulse Ox O2 Del Method O2 Flow Rate 97.8 F 98 27 H 118/69 96 Nasal Cannula 1 06/23/24 08:00 06/23/24 08:00 06/23/24 08:00 06/23/24 08:00 06/23/24 08:00 06/23/24 08:00 06/23/24 08:00 FiO2 94 06/23/24 08:00 Narrative Exam GENERAL: Obese, normal appearing elderly male, NAD, on 1 L oxygen HEENT: NCAT.?EJ. Oral mucosa is moist. Patent Nares NECK: Supple, nontender, no thyromegaly, no meningismus, no JVD, no step offs CHEST: Symmetrical, atraumatic, and with equal expansion, Nontender on palpation no deformity and no crepitus. CARDIOVASCULAR: RRR, no m/g/r LUNGS: CTAB, no w/r/r. Symmetrical chest rise. No intercostal subcostal retraction. ABDOMEN: Soft, flat, nontender. No guarding/rebound tenderness/masses. +BS EXTREMITIES: Nontender.? No edema/cyanosis.?Moves all 4 extremities well, with full ROM and good CSM. SKIN: Warm and dry, no jaundice/rashes. MSK: No lumbar or midline, no CVA, no paraspinal muscle spasm or tenderness. NEURO: CONTRERAS x4, CN II-XII grossly intact.?No focal neurologic deficits. PSYCHIATRIC: Normal mood and affect, cooperative, no SI or HI or hallucinations. Objective Labs 06/24/24 04:51 06/24/24 04:51 Labs: Laboratory Results - last 24 hr 06/22/24 06/23/24 11:38 04:44 WBC 10.7 H RBC 3.72 L Hgb 11.0 L Hct 33.0 L MCV 89 MCH 29.6 MCHC 33.3 RDW Std Deviation 44.8 H Plt Count 301 Neut % (Auto) 71 Lymph % (Auto) 15 [place] % (Auto) 10 Eos % (Auto) 3 Baso % (Auto) 1 Neut # (Auto) 7.6 Lymph # (Auto) 1.6 [place] # (Auto) 1.1 H Eos # (Auto) 0.3 Baso # (Auto) 0.1 Immature Gran # (Auto) 0.09 H Absolute Nucleated RBC 0.00 Immature Gran % 1 H Nucleated RBC % 0 Sodium 138 Potassium 4.0 Chloride 104 Carbon Dioxide 24.8 Anion Gap 9 BUN 29 H Creatinine 2.2 H Estim Creat Clear Calc 38.8 L eGFR 31 L BUN/Creatinine Ratio [address] Glu mg/dL 189 H Hemoglobin A1c 8.2 H Calculated Osmolality 288 Calcium 9.3 Corrected Calcium 9.3 Total Bilirubin 1.0 AST 10 ALT 18 Alkaline Phosphatase 105 Troponin I 0.075 H* Total Protein 7.0 Albumin 4.0 Globulin 3.0 Albumin/Globulin Ratio 1.3 Quality Measures Quality Measures none Advance care planning discussed with:: patient Assessment & Plan Assessment Current Active Medications: Generic Name Dose Route Start Last Admin Trade Name Freq PRN Reason Stop Dose Admin Acetaminophen 650 mg 06/22/24 16:53 Acetaminophen 325 Mg Tablet PO 07/22/24 16:52 Q6H PRN Fever >100.4 Acetaminophen 650 mg 06/22/24 16:53 Acetaminophen 325 Mg Tablet PO 07/22/24 16:52 Q6H PRN PAIN SCALE 1-3 (mild Amlodipine Besylate 5 mg 06/22/24 17:30 06/22/24 20:06 Amlodipine Besylate 5 Mg Tablet PO 07/22/24 17:29 5 mg DAILY NANI Administration Aspirin 81 mg 06/22/24 17:45 06/22/24 20:05 Aspirin Ec 81 Mg Tabec PO 07/22/24 17:44 81 mg DAILY NANI Administration Atorvastatin Calcium 80 mg 06/22/24 21:00 06/22/24 20:06 Atorvastatin Calcium 20 Mg Tablet PO 07/22/24 20:59 80 mg HS NANI Administration Bumetanide 1 mg 06/22/24 21:00 06/22/24 20:07 Bumetanide Inj 0.25 Mg/Ml Vial 4 Ml IVP 07/22/24 20:59 1 mg BID NANI Administration Dextrose 25 ml 06/22/24 17:48 Dextrose 50%-Water Inj 50 Ml Syringe IV 07/22/24 17:47 Q15MIN PRN BG 50-70 responsive npo pt Dextrose 50 ml 06/22/24 17:48 Dextrose 50%-Water Inj 50 Ml Syringe IV 07/22/24 17:47 Q15MIN PRN BG <50 OR BG <70 & pt unresponsive Duloxetine HCl 60 mg 06/22/24 17:45 06/22/24 20:04 Duloxetine Hcl 30 Mg Capsule PO 07/22/24 17:44 60 mg QDAY NANI Administration Glucagon 1 mg 06/22/24 17:48 Glucagon Inj 1 Mg Vial IM Q15MIN PRN BG <70, and no IV access Heparin Sodium (Porcine) 5,000 unit 06/23/24 06:00 06/23/24 05:05 Heparin Sod Inj 5000 Unit/Ml Vial SC 07/07/24 05:59 5,000 unit Q8HR NANI Administration Insulin Human Lispro 0 unit 06/22/24 21:00 06/23/24 07:33 Insulin Lispro (Admelog) 1 Unit/0.01 Ml Unit SC 07/22/24 20:59 2 unit ACHS NANI Administration Protocol Magnesium Hydroxide 30 ml 06/22/24 16:53 Milk Of Magnesia Susp 30 Ml Udc PO 07/22/24 16:52 QDAY PRN CONSTIPATION Protocol Pantoprazole Sodium 40 mg 06/23/24 09:00 Pantoprazole 40 Mg Tablet PO 07/23/24 08:59 QDAY NANI Spironolactone 25 mg 06/23/24 09:00 Spironolactone 25 Mg Tablet PO 07/23/24 08:59 QDAY NANI Ticagrelor 90 mg 06/23/24 09:00 Ticagrelor 90 Mg Tablet PO 07/23/24 08:59 BID NANI Plan In summary: Patient admitted for CHF exacerbation, and started on LASIX 40 mg IV BID. He has a history of dilated cardiomyopathy, HFrEF EF 25% 10/2023, ICD implantation, CAD s/p multiple stenting, CKD stage IIIB. Dr. Hernandez following, appreciate recommendations. # Acute exacerbation of systolic heart failure, HFrEF EF 40% # Dilated cardiomyopathy # S/p ICD implantation Presented with worsening SOB and orthopnea. Patient has been out of home DIURETICS for 1 month, however restarted his meds 5 days ago but has persistent SOB. In ED patient desatting to 80s on room air CXR after diuresis showed cardiomegaly, without congestion or effusion possible left basilar PNA, however patient does not fit the picture for PNA, no productive cough, no fever BNP 282 from 06/17/2024 Cardiology, Dr. Hernandez reviewed outside records, stress echo EF 40%, improved from previous 25%, recommended starting ENTRESTO 24/26 mg BID ? Started BUMEX 2 mg p.o. daily ? Resumed home SPIRONOLACTONE 25 mg daily ? Resumed home METOPROLOL SUCCINATE 50 mg daily ? Started ENTRESTO 24/26 mg BID ? Fluid restriction <1200 cc ? Strict DUGLAS's ? Oxygen as needed ? Cardiac diet ? Trend creatinine # Transient NSTEMI type II # CAD s/p multiple stents # Hyperlipidemia Presented with troponin 0.202, likely demand ischemia Troponin downtrending, now 0.075 Admits to pleuritic chest pain over the last several days, improved Currently denies chest pain TSH 0.34 from 10/2023, A1c 7.4 from 2022, LDL 66 from 2022 Preferred target LDL less than 55 given diabetes and cardiomyopathy ? Telemetry bed ? Resumed home BRILINTA 90 mg daily ? Resumed home ASPIRIN 81 mg daily ? Resumed home ATORVASTATIN 80 mg ? Follow-up lipid panel ? Follow-up TSH ? Follow-up A1c # Primary hypertension # Sinus Tachycardia BP 134/76, HR 102 Tachycardia likely 2/2 oxygen demand Anticipate improving with oxygenation and CHF management ? Resumed home ATORVASTATIN 80 mg ? Resumed home LISINOPRIL 2.5 mg daily ? Resumed home AMLODIPINE 5 mg daily ? Telemetry # Mild JOSÉ ANTONIO on CKD stage IIIb Presented CR 2.2, most recent CR 2.0 from 06/17, however baseline around 2.5 Likely prerenal JOSÉ ANTONIO Anticipate improvement with diuresis ? Daily CBC ? Avoid overdiuresis ? Avoid nephrotoxic agents # Left base pneumonia CXR showed left base pneumonia, leukocytosis 0.7, although patient asymptomatic, clinical judgment for treatment given comorbidities ? AMOXICILLIN 500 mg TID for 7 days (06/23 to 06/30) # Chronic normocytic anemia Likely related to CKD Hemoglobin 11.3, near baseline No signs or symptoms of bleeding ? Daily CBC # T2DM, non-insulin Patient on home TRADJENTA 5 mg daily, diagnosed 4 years ago A1c 7.4 from 2022 ? Holding TRADJENTA ? INSULIN sliding scale ? Follow-up repeat A1c # Anxiety ? Resumed home DULOXETINE 30 mg BID Health maintenance Diet: Cardiac GI prophylaxis: PROTONIX DVT prophylaxis: HEPARIN subcu Antibiotics: Not indicated CODE STATUS: Full code Disposition: Pending SOB improvement Patient case was discussed with attending, Cleveland Gray MD and senior residents Dr. Phoenix and Dr. Hinton. Wandy Henriquez DO PGYI Attending Provider Attestation/Addendum I reviewed labs, imaging, EKG, home medications and prior available records. Face to face evaluation was performed by me. I have personally examined the patient and discussed assessment and plan with the IM team. I reviewed the resident note and agree with the plan with exceptions as below. 73-year-old male with history of ischemic cardiomyopathy status post AICD, heart failure with a EF of 25%, CAD status post PCI, CKD stage IIIb, who presented with worsening shortness of breath and leg swelling. He was found to have acute hypoxic respiratory failure in the setting of CHF exacerbation. Acute hypoxic respiratory failure: In the setting of CHF exacerbation. Diuresis as below. Wean off oxygen as tolerated. CHF exacerbation: Start IV diuresis with IV Bumex. Monitor I's and O's. Cardiology consulted. Ordered PT evaluation and patient was able to participate well. CKD stage IIIb: Creatinine is close to baseline. Diuresis as above. Monitor kidney function. Avoid nephrotoxins. Renally dosed medications. Elevated troponin: Likely type II non-STEMI in the setting of CHF exacerbation. Management as above.
[2024-06-23] MEDS: ASPIRIN EC 81 MG TABEC PO (09:09)
[2024-06-23] MEDS: DULoxetine HCL 30 MG CAPSULE 60 MG PO (09:09)
[2024-06-23] MEDS: amLODIPine BESYLATE 5 MG TABLET PO (09:09)
[2024-06-23] MEDS: PANTOPRAZOLE 40 MG TABLET PO (09:09)
[2024-06-23] MEDS: BUMETANIDE INJ 0.25 MG/ML VIAL 4 ML 1 MG IVP (09:10)
[2024-06-23] MEDS: SPIRONOLACTONE 25 MG TABLET PO (09:10)
[2024-06-23] MEDS: TICAGRELOR 90 MG TABLET PO ×2 (09:13→20:10)
[2024-06-23 09:24] LABS: Alanine Aminotransferase 16 U/L (10-49); Albumin/Globulin Ratio 1.3 (1.2-2.2); Alkaline Phosphatase 103 U/L (46-116); Anion Gap 8 (7-16); Aspartate Amino Transferase 11 U/L (0-34); BUN/Creatinine Ratio 16 Ratio (12-20); Bilirubin,Total 0.8 mg/dL (0.3-1.2); Blood Urea Nitrogen 36 mg/dL (9-23); Calcium 9.3 mg/dL (8.3-10.6); Calcium (Corrected) 9.3 mg/dL (8.5-10.1); Carbon Dioxide 31.5 mMol/L (20.0-31.0); Cardiac Risk Estimate 4.2 RATIO (4.0-6.7); Chloride 99 mMol/L (98-107); Cholesterol 100 mg/dL (132-200); Creatinine (Component) 2.3 mg/dL (0.6-1.3); Estimated Creatinine Clearance 37.1 mL/min (>60); Globulin 3.1 gm/dL (2.3-3.5); Glucose 245 mg/dL (74-106); HDL Cholesterol 24 mg/dL (40-60); LDL Cholesterol,Calculated 55 mg/dL (0-130); Magnesium 1.8 mg/dL (1.6-2.6); Osmolality,Calculated 291 (275-295); Phosphorous 3.7 mg/dL (2.4-5.1); Potassium 3.7 mMol/L (3.4-5.1); Sodium 138 mMol/L (136-145); Thyroid Stimulating Hormone 0.34 uIU/mL (0.55-4.78); Total Protein 7.1 gm/dL (5.7-8.2); Triglycerides 104 mg/dL (30-150); eGFR 29 See Note
[2024-06-23] MEDS: AMOXICILLIN 250 MG CAPSULE 500 MG PO ×2 (11:27→21:23)
--- NOTE | 2024-06-23 13:41 | PC.PT ---
PT eval only. Patient is I with transfers and ambulation without AD.
--- NOTE | 2024-06-23 14:58 | PC.SS ---
Rounding Note: Plan is to diuresis the patient. Dr. Hernandez consulting.
--- NOTE | 2024-06-23 15:22 | ESPR_ITS ---
RE: KEVAN LARSEN : 1950 DATE OF SERVICE: 06/23/2024 S: The patient is a 73-year-old male history a of chronic systolic heart failure, ischemic and nonischemic cardiomyopathy who was admitted to the hospital with congestive heart failure symptoms. He ran out of his medications volume overload and heart failure, improving his diuretic therapy. He diuresed well over the last 24 hours. He is still on IV Bumex, making good progress. O: Vital Signs: Stable. Blood pressure is 121/30, pulse 90, respirations 15, temperature normal. Neck: Supple. No JVD. Chest: Symmetrical. Lungs: Decreased breath sounds at the bases. Heart: S1, S2. Regular. Abdomen: Obese, soft. Extremities: Mild edema, both feet. Genital/Rectal: Not performed. LABORATORY DATA: Chemistry panel showed creatinine 2.3, BUN of 36, potassium of 3.7. Creatinine clearance . The patient is known to have chronic kidney disease as well in the past. A: 1. Acute decompensated chronic systolic heart failure. 2. Ischemic cardiomyopathy, status post multivessel stent placement. P: 1. Continue to optimize medical management. If he feels well today later on, he can probably discharge him on oral diuretics. 2. Recommend at least 2 mg Bumex daily and also continue his spironolactone 25 daily and Entresto 24/26 b.i.d. Aspirin and Brilinta to be continued. 3. The patient had a left main stent placement six months ago and he should be continuing aspirin and Brilinta for about six more months. DT: 12:58:18 TT: 15:07:00 Ref: [id number] - TID: [id number]
[2024-06-23] MEDS: ATORVASTATIN CALCIUM 20 MG TABLET 80 MG PO (20:11)
[2024-06-23] MEDS: SACUBITRIL 24 MG/VALSARTAN 26 MG TABLET 1 TAB PO (20:11)
[2024-06-24] VITALS (10 sets, daily range): BP systolic 110–137; BP diastolic 70–87; PULSE 93–106; RESP 17–25; TEMP 36.1–36.6; O2SAT 92–97
[2024-06-24] MEDS: HEPARIN SOD INJ 5000 UNIT/ML VIAL SC ×2 (05:13→13:30)
[2024-06-24] MEDS: AMOXICILLIN 250 MG CAPSULE 500 MG PO ×2 (05:13→13:29)
[2024-06-24 05:34] LABS: Basophils # (Auto) 0.1 Thou/mm3 (0.0-0.2); Basophils % (Auto) 1 % (0-2.5); Eosinophils # (Auto) 0.3 Thou/mm3 (0.0-0.5); Eosinophils % (Auto) 3 % (0-10); Hematocrit 33.8 % (41.0-53.0); Hemoglobin 11.3 g/dL (13.5-16.0); Immature Granulocytes % (Auto) 1 % (0-0); Immature Granulocytes Auto 0.06 Thou/mm3 (0.00-0.00); Lymphocytes # (Auto) 1.7 Thou/mm3 (1.0-4.8); Lymphocytes % (Auto) 18 % (10-50); Mean Corpuscular HGB Conc 33.4 g/dl (31.0-37.0); Mean Corpuscular Hemoglobin 29.6 pg (25.0-35.0); Mean Corpuscular Volume 89 fL (80-100); Monocytes # (Auto) 0.8 Thou/mm3 (0.0-0.8); Monocytes % (Auto) 9 % (0-12); Neutrophils # (Auto) 6.3 Thou/mm3 (1.8-7.7); Neutrophils % (Auto) 69 % (37-80); Nucleated Red Blood Cell % 0 /100 WBC (0); Platelet Count 269 Thou/mm3 (140-440); RDW Standard Deviation 43.7 fL (35.1-43.9); Red Blood Count 3.82 Miln/mm3 (4.50-5.90); White Blood Count 9.2 Thou/mm3 (3.8-10.6)
[2024-06-24 06:19] LABS: Alanine Aminotransferase 16 U/L (10-49); Albumin/Globulin Ratio 1.3 (1.2-2.2); Alkaline Phosphatase 106 U/L (46-116); Anion Gap 10 (7-16); Aspartate Amino Transferase < 10 U/L (0-34); BUN/Creatinine Ratio 18 Ratio (12-20); Bilirubin,Total 0.5 mg/dL (0.3-1.2); Blood Urea Nitrogen 39 mg/dL (9-23); Calcium 9.3 mg/dL (8.3-10.6); Calcium (Corrected) 9.3 mg/dL (8.5-10.1); Carbon Dioxide 26.4 mMol/L (20.0-31.0); Chloride 101 mMol/L (98-107); Creatinine (Component) 2.2 mg/dL (0.6-1.3); Estimated Creatinine Clearance 38.8 mL/min (>60); Globulin 3.1 gm/dL (2.3-3.5); Glucose 208 mg/dL (74-106); Magnesium 1.7 mg/dL (1.6-2.6); Osmolality,Calculated 289 (275-295); Phosphorous 3.7 mg/dL (2.4-5.1); Sodium 137 mMol/L (136-145); Total Protein 7.1 gm/dL (5.7-8.2); eGFR 31 See Note
[2024-06-24] MEDS: INSULIN LISPRO (AdmeLOG) 1 UNIT/0.01 ML UNIT SC ×2 (07:54→12:12)
[2024-06-24] MEDS: BUMETANIDE 0.5 MG TABLET 2 MG PO (09:31)
[2024-06-24] MEDS: DULoxetine HCL 30 MG CAPSULE PO (09:31)
[2024-06-24] MEDS: SPIRONOLACTONE 25 MG TABLET PO (09:32)
[2024-06-24] MEDS: SACUBITRIL 24 MG/VALSARTAN 26 MG TABLET 1 TAB PO ×2 (09:32→17:36)
[2024-06-24] MEDS: ASPIRIN EC 81 MG TABEC PO (09:32)
[2024-06-24] MEDS: TICAGRELOR 90 MG TABLET PO (09:32)
[2024-06-24] MEDS: amLODIPine BESYLATE 5 MG TABLET PO (09:32)
[2024-06-24] MEDS: PANTOPRAZOLE 40 MG TABLET PO (09:32)
--- NOTE | 2024-06-24 12:59 | ESDS_ITS ---
Planned Discharge Date 06/24/24 DS: Providers Provider Date of admission: 06/22/24 16:53 Primary care physician: Dre Leonard MD Admitting Provider: Cleveland Gray MD Attending Provider on Admission: Cleveland Gray MD Consults: 06/22/24 16:05 Consult to Cardiology Stat Comment: Consulting Provider: Valeri Hernandez 06/23/24 10:18 Referral Physical Therapy Routine Comment: Physician Instructions: Attending Provider on DC: Ismael Phoenix MD Discharging Provider: Ismael Phoenix MD DS: Diagnosis Problem List Completed Was Problem List Reviewed/Reconciled?: Yes Hospital Course Hospital Course Hospital course: Patient was a 73-year-old male with dilated cardiomyopathy, HFrEF with an improved EF (25% to 40%) s/p multivessel PCI & ICD, CKD stage IIIb, T2DM, anxiety who presented with SOB after he ran out of his diuretics and unable to obtain a refill. Patient was noted to have conversational dyspnea that improved. He was admitted for acute hypoxic respiratory failure in the setting of acute on chronic decompensated systolic heart failure. Patient was started on aggressive diuresis with Bumex, had excellent urine output, and was started on GDMT including Entresto, metoprolol succinate, spironolactone. His aspirin and Brilinta, and other home meds for chronic conditions (T2DM, anxiety) were resumed. Of note, patient initially was on 5 L nasal cannula which was weaned down to 1 L NC, then room air however he desaturated to 87%, therefore was discharged home with oxygen. #Acute hypoxic respiratory failure #Acute on chronic decompensated systolic heart failure, improved #HFrEF, improved EF (25->50%) #Dilated cardiomyopathy s/p ICD #CAD s/p PCI #NSTEMI, likely type II demand ischemia #HLD #HTN #CKD 3B #Left base pneumonia #Chronic normocytic anemia #T2DM #Anxiety Patient was discharged with 2 mg Bumex p.o. daily; Entresto 24?26 mg twice daily, and spironolactone 25 mg daily in addition to his home meds. He is to follow-up with PCP and Dr. Hernandez within 1 week. Patient can return to the ED if symptoms return or worsen. He was discharged home on oxygen. Patient seen and care discussed with my attending Dr. Gray. Ismael Phoenix MD PGY-3 Status at Discharge Cognitive/behavioral status at discharge: AAOx3 Time Spent with Patient Time attestation: Total time spent providing and/or coordinating discharge services: Time spent: Greater than 30 minutes Exam Vital Signs Temp Pulse Resp BP Pulse Ox O2 Del Method O2 Flow Rate 97.8 F 106 H 20 136/78 H 96 Nasal Cannula 2 06/24/24 12:00 06/24/24 12:00 06/24/24 12:00 06/24/24 12:00 06/24/24 12:00 06/24/24 12:00 06/24/24 12:00 FiO2 94 06/24/24 12:00 Narrative Exam Gen: AAOx3, obese elderly male, pleasant to speak with, on NC HEENT: NCAT, PERRLA, EOMI, MMM, no LAD CVS: normal S1, S2. RRR. No MRG Resp: Bibasilar crackles resolved Abd: soft, non-tender, non-distended. BS+ in all 4 quadrants MSK: Good ROM in BUE & BLE. BLE edema resolved Neuro: CN II-XII grossly intact. Strength 5/5 in BUE & BLE. Psych: appropriate mood and affect. Discharge Plan Plan Patient Disposition: HOME (Self Care) Patient condition on transfer: Stable Care Plan Goals: Follow up with your PCP and Dr. Hernandez in 1 week Your medications were adjusted: Take Bumex 2mg once daily; Entresto 24-26mg twice daily; Spironolactone 25mg once daily Continue other meds as previously prescribed Can return to the ED if your symptoms return or worsen Prescriptions/Referrals Prescriptions/Med Rec: New bumetanide 2 mg tablet 2 mg PO DAILY 30 Days Qty: 30 2RF sacubitril-valsartan 24-26 mg tablet 1 tab PO BID 30 Days Qty: 60 1RF spironolactone 25 mg Tablet 25 mg PO QDAY 30 Days Qty: 30 1RF Continued Tradjenta 5 MG tablet 5 mg PO QDAY Qty: 0 ferrous sulfate 325 mg (65 mg iron) Tablet 325 mg PO QDAY atorvastatin 80 mg tablet 80 mg PO QDAY duloxetine 60 mg capsule,delayed release(DR/EC) 60 mg PO QDAY Brilinta 90 mg tablet 90 mg PO BID Ozempic 0.25 mg or 0.5 mg(2 mg/1.5 mL) pen injector 0.5 mg SUBCUT QWEEK Patient Comments: inject 0.5 milligrams subcutaneously every week metoprolol succinate 50 mg tablet extended release 24 hr 50 mg PO QDAY aspirin 81 mg Tablet,Delayed Release (Dr/Ec) 81 mg PO QDAY Discontinued bumetanide 1 mg tablet 1 mg PO QDAY Patient Comments: take 1 tablet by mouth twice a day Referrals: Dre Leonard MD [Primary Care Provider] - Patient/Caregiver Discharge Instructions Discharge Activity: activity as tolerated Education Materials: Heart Failure Meds, Heart Failure: Tracking Your Weight, Using Oxygen Safely, Heart Failure Dc, Traveling with Oxygen Print Language: Colombian Stand Alone Forms: [employer] Award Info., Patient Portal Info Letter Discharge Order Discharge Orders: Discharge (Routine); Ordered 06/24/24 Ordered By: Ismael Phoenix Quality Discharge Quality Measures VTE prophylaxis Attestestation Attestation I reviewed labs, imaging, EKG, home medications and prior available records. Face to face evaluation was performed by me. I have personally examined the patient and discussed assessment and plan with the IM team. I reviewed the resident note and agree with the plan with exceptions as below. 73-year-old male with history of ischemic cardiomyopathy status post AICD, heart failure with a EF of 25%, CAD status post PCI, CKD stage IIIb, who presented with worsening shortness of breath and leg swelling. He was found to have acute hypoxic respiratory failure in the setting of CHF exacerbation. Acute hypoxic respiratory failure: Improved. In the setting of CHF exacerbation. Diuresis as below. CHF exacerbation: Start IV diuresis with IV Bumex. Monitor I's and O's. Cardiology consulted. Switch to p.o. Bumex upon discharge. Ordered PT evaluation and patient was able to participate well. CKD stage IIIb: Creatinine is close to baseline. Diuresis as above. Monitor kidney function. Avoid nephrotoxins. Renally dosed medications. Elevated troponin: Likely type II non-STEMI in the setting of CHF exacerbation. Management as above. Time spent is 40 minutes. More than 50% of the time was spent on patient education and coordination of care.
--- NOTE | 2024-06-24 13:06 | PC.NURSE ---
Patient's oxygen saturation 87% on room air at rest, put patient on 2L oxygen via nasal canula, oxygen saturation came up to 94%.
--- NOTE | 2024-06-24 14:48 | PC.SS ---
[facility] Consultant (MELO) Jemima met with patient face to face to discuss discharge. Patient will return home ([address] [place] [id number]) with O2. SW completed referral to [facility].
== END 2024-06-24 18:15 | disposition home or self-care (01) | DRG 280 ==
LOC: SERX 16:35 → SERHOLD 17:19 → S2NX 18:04
PROVIDERS: Student in an Organized Health Care Education/Training Program; Admitting Provider Student in an Organized Health Care Education/Training Program; Emergency Provider Emergency Medicine; PCP Family Medicine; Visit Provider Student in an Organized Health Care Education/Training Program
DX: I13.0 Hypertensive heart and chronic kidney disease with heart failure and stage 1 through stage 4 chronic kidney disease, or unspecified chronic kidney disease (principal); I50.23 Acute on chronic systolic (congestive) heart failure; I21.A1 Myocardial infarction type 2; J18.9 Pneumonia, unspecified organism; J96.01 Acute respiratory failure with hypoxia; N17.9 Acute kidney failure, unspecified; I42.0 Dilated cardiomyopathy; I25.10 Atherosclerotic heart disease of native coronary artery without angina pectoris; N18.32 Chronic kidney disease, stage 3b; E11.22 Type 2 diabetes mellitus with diabetic chronic kidney disease; E78.5 Hyperlipidemia, unspecified; D63.1 Anemia in chronic kidney disease; F41.9 Anxiety disorder, unspecified; Z95.810 Presence of automatic (implantable) cardiac defibrillator; Z95.5 Presence of coronary angioplasty implant and graft
CPT/HCPCS: 36415; 71046; 80053; 80061; 83036; 83735; 84100; 84443; 84484; 85025; 93005; 96374; 97162; 99285; J1643; J1815; J1940; J3490; A9270; J1644

== ENCOUNTER → 2024-06-30 | Outpatient (CLI) | payer BC, MEDICARE, SELFPAY ==
--- NOTE | 2024-06-30 | XR_ITS ---
Examination: Tibia-Fibula, right , 2 views Technique: Tibia-fibula AP lateral 2 views Date and time of exam: June 30, 2024 1216 hours INDICATIONS: Patient fell today with injury to the lower leg, lower leg pain. FINDINGS: Subtle radiolucency through the fibular neck No dislocation No foreign body IMPRESSION: Recommend knee films follow-up to exclude nondisplaced fracture fibular neck
[2024-06-30 13:55] LABS: Albumin, Serum 4.3 gm/dL (3.4-4.8); Anion Gap 6 (7-16); BUN/Creatinine Ratio 20 Ratio (12-20); Blood Urea Nitrogen 53 mg/dL (9-23); Carbon Dioxide 28.1 mMol/L (20.0-31.0); Chloride 102 mMol/L (98-107); Creatinine (Component) 2.7 mg/dL (0.6-1.3); Glucose 180 mg/dL (74-106); Osmolality,Calculated 291 (275-295); Phosphorous 3.3 mg/dL (2.4-5.1); Potassium 4.8 mMol/L (3.4-5.1); Sodium 136 mMol/L (136-145); eGFR 24 See Note
== END | disposition home or self-care (01) ==
LOC: COPL 11:46
PROVIDERS: Family Medicine; Referring Provider Internal Medicine Cardiovascular Disease; Visit Provider Radiology Diagnostic Radiology
DX: M79.604 Pain in right leg (principal); I25.118 Atherosclerotic heart disease of native coronary artery with other forms of angina pectoris; I50.22 Chronic systolic (congestive) heart failure; G47.33 Obstructive sleep apnea (adult) (pediatric)
CPT/HCPCS: 36415; 73590; 80069

== ENCOUNTER 2024-07-06 07:57 | Outpatient (AMB) | payer BC, MEDICARE, SELFPAY ==
[2024-07-06 08:08] VITALS: BP 99/65; PULSE 87; RESP 18; TEMP 36.6; O2SAT 90; BMI 32.3
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
== END 2024-07-06 08:28 | disposition home or self-care (01) ==
LOC: HODSRG 07:57
PROVIDERS: PCP Family Medicine; Referring Provider Family Medicine; Supervising Provider Orthopaedic Surgery Adult Reconstructive Orthopaedic Surgery; Visit Provider Orthopaedic Surgery Adult Reconstructive Orthopaedic Surgery
DX: S82.491A Other fracture of shaft of right fibula, initial encounter for closed fracture (principal); W18.30XA Fall on same level, unspecified, initial encounter; I10 Essential (primary) hypertension; I25.10 Atherosclerotic heart disease of native coronary artery without angina pectoris; E11.9 Type 2 diabetes mellitus without complications
CPT/HCPCS: 99213; G0463

== ENCOUNTER 2024-07-20 09:25 | Day surgery (SDC) | payer BC, MEDICARE, SELFPAY ==
[2024-07-10 14:17] VITALS: BMI 32.0
--- NOTE | 2024-07-18 13:01 | EKG_ITS ---
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
[2024-07-18 13:23] LABS: Basophils # (Auto) 0.1 Thou/mm3 (0.0-0.2); Basophils % (Auto) 1 % (0-2.5); Eosinophils # (Auto) 0.3 Thou/mm3 (0.0-0.5); Eosinophils % (Auto) 2 % (0-10); Hematocrit 38.6 % (41.0-53.0); Hemoglobin 12.6 g/dL (13.5-16.0); Immature Granulocytes % (Auto) 1 % (0-0); Immature Granulocytes Auto 0.07 Thou/mm3 (0.00-0.00); Lymphocytes # (Auto) 2.1 Thou/mm3 (1.0-4.8); Lymphocytes % (Auto) 19 % (10-50); Mean Corpuscular HGB Conc 32.6 g/dl (31.0-37.0); Mean Corpuscular Volume 89 fL (80-100); Monocytes # (Auto) 0.9 Thou/mm3 (0.0-0.8); Monocytes % (Auto) 8 % (0-12); Neutrophils # (Auto) 7.5 Thou/mm3 (1.8-7.7); Neutrophils % (Auto) 69 % (37-80); Nucleated Red Blood Cell % 0 /100 WBC (0); Platelet Count 302 Thou/mm3 (140-440); RDW Standard Deviation 44.9 fL (35.1-43.9); Red Blood Count 4.35 Miln/mm3 (4.50-5.90); White Blood Count 10.9 Thou/mm3 (3.8-10.6)
[2024-07-18 13:37] LABS: Anion Gap 11 (7-16); BUN/Creatinine Ratio 18 Ratio (12-20); Blood Urea Nitrogen 51 mg/dL (9-23); Carbon Dioxide 27.4 mMol/L (20.0-31.0); Chloride 100 mMol/L (98-107); Creatinine (Component) 2.8 mg/dL (0.6-1.3); Estimated Creatinine Clearance 30.1 mL/min (>60); Glucose 219 mg/dL (74-106); Osmolality,Calculated 296 (275-295); Sodium 138 mMol/L (136-145); eGFR 23 See Note
[2024-07-18 13:38] LABS: INR 1.1 (0.9-1.3); Partial Thromboplastin Time 27.1 Seconds (22.0-36.0); Prothrombin Time 11.5 Seconds (9.0-12.2)
[2024-07-20] VITALS (13 sets, daily range): BP systolic 110–142; BP diastolic 69–97; PULSE 73–93; RESP 12–23; TEMP 36.1–36.6; O2SAT 91–98
--- NOTE | 2024-07-20 12:50 | PC.NURSE ---
1230 patient is awake, alert, breathing unlabored, s/p LHC and RHC by dr Hernandez, TR band present to right wrist, no bleeding or hematoma noted. Venous sheath present to right groin, no bleeding noted, ok to remove venous sheath now per Dr. Hernandez. Patient to recovery for 3 hrs and be discharged home 1hr after TR band removal. Ok to resume home medications, no new medications at this time. 1243 Patient is awake, alert, breathing unlabored, no bleeding noted to right wrist or groin, Report given to Manasa AGUILAR who will remove venous sheath to right femoral.
--- NOTE | 2024-07-20 13:39 | ESOP_ITS ---
RE: KEVAN LARSEN : 1950 DATE OF OPERATION: 07/20/2024 PROCEDURE PERFORMED: 1. Diagnostic right and left heart cardiac catheterization, selective coronary angiogram, left ventricular angiogram, CPT 68656. 2. Conscious sedation, 30 minutes duration. 3. Ultrasound guidance, right radial artery. DIAGNOSES: Ischemic cardiomyopathy, congestive heart failure, angina pectoris _ shortness of breath. HISTORY AND INDICATIONS: The patient is a 73-year-old with history of ischemic cardiomyopathy, congestive heart failure, multiple stent placements in the LAD, left main, circumflex artery, right coronary artery increasing shortness of breath hospitalized recently with congestive heart failure, hence right and left heart catheterization, coronary angiogram was recommended because of abnormal nuclear stress test. Coronary angiogram was also recommended. DESCRIPTION OF PROCEDURE: The patient was brought to cardiac catheterization laboratory where he was given 2 mg of Versed and 50 mcg of fentanyl for sedation. Right radial artery was cannulated by micropuncture technique and 6-German Glidesheath was introduced. Right femoral vein was cannulated by ultrasound guidance and 7-German sheath was introduced. Right heart catheterization was performed with [place]-Mauro catheter. Right heart pressures were measured. Left heart catheterization was performed by 5-German TIG-4 diagnostic catheter. Right and left selective coronary angiogram performed by TIG-4 diagnostic catheter. The patient tolerated the procedure without complications. Coronary angiogram showed following findings. Right coronary artery is large and dominant. No significant stenosis at previous stent placement. Left coronary artery system. Left main coronary artery is normal. There is evidence of mild in-stent restenosis of the proximal segment maybe 30%, but distal left main is normal. LAD widely patent. Stents are widely patent in left main, LAD and circumflex arteries. The left ventricular angiogram showed evidence of [id number] global hypokinesis, ejection fraction 35%. Hemodynamics: Right atrial pressure was found to be low at 5 mmHg. PA pressure is 18/8 mmHg, mean 11, RV pressure 16/0. PCW wedge pressure 5 mmHg. The patient is dry clinically. LV pressure 100. End diastolic pressure is 6. Aortic pressure 90/60. No gradient across the aortic valve. SUMMARY AND FINDINGS: 1. Widely patent stents involving right coronary artery, LAD, circumflex arteries. 2. Mild restenosis of left main stent, 30% stenosis. 3. Moderate LV dysfunction, ejection fraction 35%. 4. Normal right heart pressures, low wedge pressures, clinically dry. RECOMMENDATIONS: The patient will continue medical management, reduce Bumex dose to 1 mg daily. We will also hydrate him 300 mL of fluid following cath since wedge pressures are low. Prognosis is fair. DT: 12:47:44 TT: 13:29:00 Ref: [id number] - TID: [id number] MTDD
== END 2024-07-20 16:05 | disposition home or self-care (01) ==
PROVIDERS: PCP Family Medicine; Referring Provider Internal Medicine Cardiovascular Disease; Visit Provider Internal Medicine Cardiovascular Disease
PROC: (CPT 93460; principal; 2024-07-20 11:30)
DX: I25.118 Atherosclerotic heart disease of native coronary artery with other forms of angina pectoris (principal); I25.5 Ischemic cardiomyopathy; I50.9 Heart failure, unspecified; Z95.5 Presence of coronary angioplasty implant and graft; Z01.810 Encounter for preprocedural cardiovascular examination; I11.0 Hypertensive heart disease with heart failure; E11.9 Type 2 diabetes mellitus without complications
CPT/HCPCS: 93460; 36415; 80048; 85025; 85610; 85730; 93005; 99152; 99153; A4216; A4649; C1887; C1894; J0171; J0461; J0583; J1643; J2250; J2310; J2371; J2405; J3010; J3490; Q9967; A9270; J2305

== ENCOUNTER → 2024-10-11 | Outpatient (CLI) | payer BC, MEDICARE, SELFPAY ==
[2024-10-11 08:35] LABS: Basophils # (Auto) 0.1 Thou/mm3 (0.0-0.2); Basophils % (Auto) 1 % (0-2.5); Eosinophils # (Auto) 0.5 Thou/mm3 (0.0-0.5); Eosinophils % (Auto) 4 % (0-10); Hemoglobin 12.9 g/dL (13.5-16.0); Immature Granulocytes % (Auto) 1 % (0-0); Immature Granulocytes Auto 0.05 Thou/mm3 (0.00-0.00); Lymphocytes # (Auto) 2.4 Thou/mm3 (1.0-4.8); Lymphocytes % (Auto) 23 % (10-50); Mean Corpuscular HGB Conc 33.9 g/dl (31.0-37.0); Mean Corpuscular Hemoglobin 30.1 pg (25.0-35.0); Mean Corpuscular Volume 89 fL (80-100); Monocytes # (Auto) 0.9 Thou/mm3 (0.0-0.8); Monocytes % (Auto) 9 % (0-12); Neutrophils # (Auto) 6.5 Thou/mm3 (1.8-7.7); Neutrophils % (Auto) 62 % (37-80); Nucleated Red Blood Cell % 0 /100 WBC (0); Platelet Count 229 Thou/mm3 (140-440); RDW Standard Deviation 47.3 fL (35.1-43.9); Red Blood Count 4.28 Miln/mm3 (4.50-5.90); White Blood Count 10.3 Thou/mm3 (3.8-10.6)
[2024-10-11 08:51] LABS: Anion Gap 9 (7-16); BUN/Creatinine Ratio 25 Ratio (12-20); Blood Urea Nitrogen 57 mg/dL (9-23); Calcium 10.1 mg/dL (8.3-10.6); Calcium (Corrected) 10.1 mg/dL (8.5-10.1); Carbon Dioxide 27.2 mMol/L (20.0-31.0); Chloride 106 mMol/L (98-107); Creatinine (Component) 2.3 mg/dL (0.6-1.3); Glucose 117 mg/dL (74-106); Osmolality,Calculated 299 (275-295); Potassium 5.1 mMol/L (3.4-5.1); Sodium 142 mMol/L (136-145); eGFR 29 See Note
[2024-10-11 11:58] LABS: Vitamin D 25 Hydroxy Total 42.8 ng/mL (7.3-40.2)
== END | disposition home or self-care (01) ==
LOC: COPL 06:54
PROVIDERS: PCP Family Medicine; Referring Provider Internal Medicine; Visit Provider Internal Medicine
DX: E11.22 Type 2 diabetes mellitus with diabetic chronic kidney disease (principal); I25.10 Atherosclerotic heart disease of native coronary artery without angina pectoris; N18.4 Chronic kidney disease, stage 4 (severe); E83.42 Hypomagnesemia
CPT/HCPCS: 36415; 80069; 82306; 85025

== ENCOUNTER → 2024-10-16 | Outpatient (CLI) | payer BC, MEDICARE, SELFPAY ==
--- NOTE | 2024-10-16 15:45 | XR_ITS ---
Examination: PA lateral chest 2 views TECHNIQUE: Upright PA lateral chest 2 views Exam date and time: October 16, 2024 1606 hours Comparison June 22, 2024 INDICATIONS: Coughing beginning 2 weeks ago. FINDINGS: Pneumonia left base has cleared No interval pneumonia Mild prominence left ventricle Cardiac leads satisfactory position IMPRESSION: Pneumonia left base has cleared
== END | disposition home or self-care (01) ==
LOC: CDIM 15:36
PROVIDERS: PCP Family Medicine; Referring Provider Family Medicine; Visit Provider Family Medicine
DX: J18.9 Pneumonia, unspecified organism (principal)
CPT/HCPCS: 71046

== ENCOUNTER 2024-12-22 12:25 | Day surgery (SDC) | payer BC, MEDICARE, SELFPAY ==
[2024-12-21 14:22] VITALS: BMI 33.1
[2024-12-22] VITALS (8 sets, daily range): BP systolic 102–114; BP diastolic 66–73; PULSE 91–95; RESP 17–20; TEMP 36.5–37; O2SAT 91–98; BMI 32.0
[2024-12-22] MEDS: Ampicillin Inj 2,000 MG in SODIUM CHLORIDE 0.9% (POP) 100 ML 200 MG IV (13:30)
[2024-12-22] MEDS: MIDAZOLAM INJ 1 MG/ML VIAL 2 ML (ASD USE ONLY) 2 MG IVP (14:13)
[2024-12-22] MEDS: fentaNYL CIT INJ 50 mCg/ML AMP 2ML (ASD USE ONLY) IVP (14:13)
[2024-12-22] MEDS: DiphenhydrAMINE INJ 50 MG/ML VIAL 25 MG IVP (14:23)
--- NOTE | 2024-12-22 14:32 | SUR.PHASEII ---
1432: pt received from OR via [email or web address]. received report from JEFF Mckeon. pt sleepy but able to open eyes and answer questions. no s/s of resp. distress or discomfort. no s/s pain or discomfort. noted him passing gas out.
--- NOTE | 2024-12-22 14:50 | SUR.PHASEII ---
1450: pt able to drink water without any difficulty.
--- NOTE | 2024-12-22 15:18 | SUR.PHASEII ---
1518: pt discharge to home via wheelchair. pt alert and oriented to name, place and time. no s/s of resp. distress or discomfort. no s/s of pain or discomfort. discharge instructions given to pt and -Brianna, verbalizes understanding. all belongings brought given back to patient.
== END 2024-12-22 15:18 | disposition home or self-care (01) ==
PROVIDERS: PCP Family Medicine; Referring Provider Specialist; Visit Provider Specialist
PROC: 0DBE8ZX Excision of Large Intestine, Via Natural or Artificial Opening Endoscopic, Diagnostic (ICD-10-PCS; CPT 45380; principal; 2024-12-22 11:45)
DX: D12.3 Benign neoplasm of transverse colon (principal); K64.9 Unspecified hemorrhoids; K57.30 Diverticulosis of large intestine without perforation or abscess without bleeding; K63.5 Polyp of colon
CPT/HCPCS: 45380; 45385; J0290; J1200; J2250; J3010

== ENCOUNTER → 2024-12-29 | Outpatient (CLI) | payer BC, MEDICARE, SELFPAY ==
--- NOTE | 2024-12-29 | XR_ITS ---
Examination: PA lateral chest 2 views TECHNIQUE: Upright PA lateral chest 2 views Date and time: 08/31/2024 0813 hours INDICATIONS: Hypertension shortness of breath today FINDINGS: Mild enlargement left ventricle No pneumonia or pulmonary edema Cardiac leads satisfactory position IMPRESSION: No pneumonia or pulmonary edema
== END | disposition home or self-care (01) ==
LOC: CDIM 07:54
PROVIDERS: PCP Family Medicine; Referring Provider Internal Medicine Cardiovascular Disease; Visit Provider Family Medicine
DX: I51.7 Cardiomegaly (principal)
CPT/HCPCS: 71046

== ENCOUNTER → 2025-01-09 | Outpatient (CLI) | payer BC, MEDICARE, SELFPAY ==
[2025-01-09 09:08] LABS: Albumin, Serum 3.8 gm/dL (3.4-4.8); Anion Gap 7 (7-16); BUN/Creatinine Ratio 15 Ratio (12-20); Blood Urea Nitrogen 33 mg/dL (9-23); Calcium 9.3 mg/dL (8.3-10.6); Calcium (Corrected) 9.5 mg/dL (8.5-10.1); Chloride 106 mMol/L (98-107); Creatinine (Component) 2.2 mg/dL (0.6-1.3); Glucose 150 mg/dL (74-106); Osmolality,Calculated 291 (275-295); Phosphorous 3.6 mg/dL (2.4-5.1); Potassium 4.8 mMol/L (3.4-5.1); Sodium 141 mMol/L (136-145); eGFR 30 See Note
[2025-01-09 09:15] LABS: Parathyroid Hormone Intact 190.3 pg/ml (18.5-88.0)
== END | disposition home or self-care (01) ==
PROVIDERS: PCP Family Medicine; Referring Provider Internal Medicine; Visit Provider Internal Medicine
DX: E11.22 Type 2 diabetes mellitus with diabetic chronic kidney disease (principal); N18.4 Chronic kidney disease, stage 4 (severe); I25.10 Atherosclerotic heart disease of native coronary artery without angina pectoris; E83.42 Hypomagnesemia
CPT/HCPCS: 36415; 80069; 83970

== ENCOUNTER → 2025-02-27 | Outpatient (CLI) | payer BC, MEDICARE, SELFPAY ==
[2025-02-27 08:59] LABS: Albumin, Serum 4.1 gm/dL (3.4-4.8); Anion Gap 9 (7-16); BUN/Creatinine Ratio 16 Ratio (12-20); Blood Urea Nitrogen 46 mg/dL (9-23); Calcium 10.0 mg/dL (8.3-10.6); Calcium (Corrected) 10.0 mg/dL (8.5-10.1); Carbon Dioxide 26.0 mMol/L (20.0-31.0); Chloride 104 mMol/L (98-107); Creatinine (Component) 2.8 mg/dL (0.6-1.3); Glucose 130 mg/dL (74-106); Osmolality,Calculated 291 (275-295); Phosphorous 3.9 mg/dL (2.4-5.1); Potassium 4.6 mMol/L (3.4-5.1); Sodium 139 mMol/L (136-145); eGFR 23 See Note
== END | disposition home or self-care (01) ==
PROVIDERS: PCP Family Medicine; Referring Provider Internal Medicine Cardiovascular Disease; Visit Provider Internal Medicine Cardiovascular Disease
DX: I25.118 Atherosclerotic heart disease of native coronary artery with other forms of angina pectoris (principal)
CPT/HCPCS: 36415; 80069

== ENCOUNTER 2025-03-17 18:38 | Emergency (ER) | payer BC, MEDICARE, SELFPAY ==
[2025-03-17 18:39] VITALS: BMI 32.7
[2025-03-17 19:06] VITALS: BP 117/70; PULSE 88; RESP 17; TEMP 36.5; O2SAT 98
[2025-03-17] MEDS: OXYMETAZOLINE NAS SPRY 0.05% 15 ML BTL NASAL (20:31)
--- NOTE | 2025-03-17 20:50 | PD.EDEPIST ---
ED Epistaxis RME/HPI General Chief complaint: Epistaxis/Nasal Foreign Body Stated complaint: EPISTAXIS Time Seen by Provider: 03/17/25 18:53 Arrival date/time: 03/17/25 18:38 This is a 74-year-old male that comes emergency room with complaint of nosebleed. Patient states that earlier today he has no started to bleed on the left side. Patient states that he is on blood thinner. Patient states that he is on aspirin and Brilinta. Patient has cardiac stents. Patient also has history of high blood pressure and diabetes. Patient put a tampon in his nose to stop the bleeding. Patient states since then he has not had any more bleeding. Patient has no other complaints. Patient denies trauma. Related Data Home Medications ?Medication ?Instructions ?Recorded ?Confirmed aspirin 81 mg tablet,delayed 81 mg PO QDAY 07/20/24 12/22/24 release atorvastatin 80 mg tablet 80 mg PO DAILY 07/20/24 12/22/24 bumetanide 2 mg tablet 2 mg PO QDAY 07/20/24 12/22/24 duloxetine 60 mg capsule,delayed 60 mg PO QDAY 07/20/24 12/22/24 release linagliptin 5 mg tablet (Tradjenta) 5 mg PO DAILY 07/20/24 12/22/24 metoprolol succinate 50 mg 50 mg PO QDAY 07/20/24 12/22/24 tablet,extended release 24 hr sacubitril 24 mg-valsartan 26 mg 1 tab PO BID 07/20/24 12/22/24 tablet semaglutide 0.25 mg or 0.5 mg (2 0.5 mg subcut QWEEK 07/20/24 12/22/24 mg/3 mL) subcutaneous pen injector (Ozempic) ticagrelor 90 mg tablet (Brilinta) 90 mg PO BID 07/20/24 12/22/24 amlodipine 5 mg tablet 5 mg PO QDAY 12/22/24 12/22/24 oxybutynin chloride 5 mg tablet 2.5 mg PO QDAY 12/22/24 12/22/24 Allergies Allergy/AdvReac Type Severity Reaction Status Date / Time codeine Allergy Hallucinati Verified 12/22/24 13:18 ng dapagliflozin (From [facility]) AdvReac Intermediate Vomiting Verified 06/06/25 13:18 Review of Systems Review of Systems Systems Reviewed: All systems reviewed, normal except as documented Past Medical History Past Medical History CARDIAC: Positive Cardiac Disorders, Cardiac Arrhythmia, Angina, Coronary Artery Disease, Congestive Heart Failure, Cardiomyopathy, Edema and Hypertension GASTROINTESTINAL: Positive Obesity GENITOURINARY: Positive Renal Disease MUSCULOSKELETAL: Positive Fractures ENDOCRINE: Positive Diabetes Mellitus Type 2 OTHER HISTORY: Positive Hospitalization Surgical History SURGICAL: Positive Cardiac Surgery, Coronary Stent, Pacemaker and Auto Implanted Cardiovert Defib Social History SMOKING STATUS: Never smoker ED Exam Narrative Physical exam: VITAL SIGNS: Reviewed. GENERAL APPEARANCE: Alert and interactive, follows commands, no acute distress HEAD AND FACE: Non-traumatic. ENT: PERRL, left nostril has nasal tampon it was removed and patient had a big clot at the end. No more bleeding noted, Mucous membrane moist. NECK: Supple, nontender, no nuchal rigidity. CHEST: No tenderness, no crepitus, no paradoxical movement, no retractions. LUNGS: breathing even and unlabored HEART: Regular rate, cap refill less than 2 seconds ABDOMEN: Soft, nondistended, no guarding, nontender, no rebound, no masses, NEUROLOGICAL: Gross motor function intact sensory function intact, Appropriate for age. MUSCULOSKELETAL: low back nontender, full range of motion. EXTREMITIES: No redness no swelling no skin breakdown on bilateral foot and leg. Distal neurovascular status intact bilateral foot SKIN: Color pink, dry, no rash, no lacerations, no abrasions, no contusions. Course Quality Measures none Orders Category Date Time Status Oxymetazoline Jose Miguel [place] 0.05% [Afrin Nasal [place]] Med 03/17/25 20:18 Discontinued See Dose Instructions NASAL X1 ONE Vital Signs Vital signs: Vital Signs Temperature 97.7 F 03/17/25 19:06 Pulse Rate 88 03/17/25 19:06 Respiratory Rate 17 03/17/25 19:06 Blood Pressure 117/70 03/17/25 19:06 Pulse Oximetry (%) 98 03/17/25 19:06 Oxygen Delivery Method Room Air 03/17/25 19:06 Epistaxis MDM Narrative MDM Narrative:: left nostril has nasal tampon it was removed that patient had previously placed himself. Nasal tampon had a big clot at the end. No more bleeding noted. I did put Afrin in patient's left nostril. Patient tolerated well. Patient had no more bleeding while he was in the emergency room. I spoke to patient at length. Patient will follow-up with primary provider in 1 to 2 days. Come back to the emergency room if symptoms change or worsen. Patient comfortable plan of care Elizabethon dictation: Although this document has been carefully reviewed, there may still be some phonetic and other typographical errors. These errors are purely grammatical due to imperfections in the software program and should not be construed in any way to compromise the substance of the patient's medical care during this visit. Patient data External records reviewed:: [facility] previous records Clinical information provided by:: patient Social determinants that could affect healthcare access:: none Patient has the following chronic illnesses:: See HPI How is presenting disease/condition affected by chronic disease/condition?: uneffected by Evaluation data The following diagnostics were reviewed and interpreted by me:: other (specify) (None) Lab and/or radiology exams considered but not ordered:: None Interpretation Summary: See note Medications / Prescriptions Medications or Prescriptions considered but not ordered:: None Medication administrations:: Medication Administration History Discontinued Medications Oxymetazoline HCl (Oxymetazoline Jose Miguel [place] 0.05% 15 Ml Btl) 0 spray NASAL X1 ONE Stop: 03/17/25 20:19 Last Admin: 03/17/25 20:31 Dose: 1 spray Documented By: MIRTHA Comments: USED BY PROVIDER See MAR Consultations Consultation(s) initiated? (list below): No Diagnosis Most likely diagnosis given after review of the tests above:: Epistaxis Admission Indicated Admission indicated?: not indicated Admission Request Was there a request for admission?: No Disposition Plan Disposition Plan: Discharge Discharge Attestation Discharge Attestation: The patient and all family members were given an opportunity to ask questions and understood the discharge instructions. Discharge instructions specifically effects, indications for sooner follow up or return to the emergency department, and the expected course of current diagnosis. Patient condition: Stable Discharge Plan Plan Patient Disposition: HOME (Self Care) Patient condition on transfer: Stable Prescriptions/Referrals Prescriptions/Med Rec: No Action oxybutynin chloride 5 mg tablet 2.5 mg PO QDAY Patient Comments: TAKE 1/2 TABLET (2.5 MG) BY ORAL ROUTE EVERY NIGHT AT BEDTIME amlodipine 5 mg tablet 5 mg PO QDAY Patient Comments: TAKE 1 TABLET BY MOUTH EVERY DAY FOR 90 DAYS atorvastatin 80 mg Tablet 80 mg PO DAILY bumetanide 2 mg Tablet 2 mg PO QDAY metoprolol succinate 50 mg Tablet Extended Release 24 Hr 50 mg PO QDAY aspirin 81 mg Tablet,Delayed Release (Dr/Ec) 81 mg PO QDAY duloxetine 60 mg Capsule,Delayed Release(Dr/Ec) 60 mg PO QDAY Tradjenta 5 mg Tablet 5 mg PO DAILY ticagrelor [Brilinta] 90 mg Tablet 90 mg PO BID sacubitril-valsartan 24-26 mg Tablet 1 tab PO BID Ozempic 0.25 mg or 0.5 mg (2 mg/3 mL) Pen Injector 0.5 mg SUBCUT QWEEK Referrals: Dre Leonard MD [Primary Care Provider, Family Practice] - In 1 week Problem List Clinical Impression: Epistaxis Patient/Caregiver Discharge Instructions Discharge Activity: activity as tolerated Education Materials: ED Epistaxis (Adult) Additional Instructions: Follow up with primary provider in 1-2 days. Come back to ED if symptoms change or worsen Print Language: Liberian Stand Alone Forms: Lyssa Award Info., Patient Portal Info Letter PA/JENNY Supervising Physician PA/MUNICIPAL BOND TRADER Supervising Physician: brit
== END 2025-03-17 21:32 | disposition home or self-care (01) ==
PROVIDERS: Emergency Provider Nurse Practitioner Family; PCP Family Medicine
DX: R04.0 Epistaxis (principal)
CPT/HCPCS: 99282; A9270

== ENCOUNTER → 2025-04-10 | Outpatient (CLI) | payer BC, MEDICARE, SELFPAY ==
[2025-04-10 08:41] LABS: Basophils # (Auto) 0.1 Thou/mm3 (0.0-0.2); Basophils % (Auto) 1 % (0-2.5); Eosinophils # (Auto) 0.2 Thou/mm3 (0.0-0.5); Eosinophils % (Auto) 2 % (0-10); Hematocrit 39.8 % (41.0-53.0); Hemoglobin 13.1 g/dL (13.5-16.0); Immature Granulocytes Auto 0.06 Thou/mm3 (0.00-0.00); Lymphocytes # (Auto) 2.1 Thou/mm3 (1.0-4.8); Lymphocytes % (Auto) 20 % (10-50); Mean Corpuscular HGB Conc 32.9 g/dl (31.0-37.0); Mean Corpuscular Hemoglobin 30.3 pg (25.0-35.0); Mean Corpuscular Volume 92 fL (80-100); Monocytes # (Auto) 1.0 Thou/mm3 (0.0-0.8); Monocytes % (Auto) 10 % (0-12); Neutrophils # (Auto) 7.1 Thou/mm3 (1.8-7.7); Neutrophils % (Auto) 68 % (37-80); Nucleated Red Blood Cell # 0.00 Thou/mm3 (0.00-0.00); Nucleated Red Blood Cell % 0 /100 WBC (0); Platelet Count 203 Thou/mm3 (140-440); RDW Standard Deviation 47.6 fL (35.1-43.9); Red Blood Count 4.32 Miln/mm3 (4.50-5.90); White Blood Count 10.5 Thou/mm3 (3.8-10.6)
[2025-04-10 08:57] LABS: Albumin, Serum 4.0 gm/dL (3.4-4.8); Anion Gap 10 (7-16); BUN/Creatinine Ratio 21 Ratio (12-20); Blood Urea Nitrogen 68 mg/dL (9-23); Calcium 9.7 mg/dL (8.3-10.6); Calcium (Corrected) 9.7 mg/dL (8.5-10.1); Carbon Dioxide 23.8 mMol/L (20.0-31.0); Chloride 107 mMol/L (98-107); Creatinine (Component) 3.3 mg/dL (0.6-1.3); Glucose 124 mg/dL (74-106); Osmolality,Calculated 301 (275-295); Phosphorous 5.4 mg/dL (2.4-5.1); Potassium 5.3 mMol/L (3.4-5.1); Sodium 141 mMol/L (136-145); eGFR 19 See Note
== END | disposition home or self-care (01) ==
LOC: COPL 06:54
PROVIDERS: PCP Family Medicine; Referring Provider Internal Medicine Cardiovascular Disease; Visit Provider Internal Medicine
DX: E11.22 Type 2 diabetes mellitus with diabetic chronic kidney disease (principal); N18.4 Chronic kidney disease, stage 4 (severe); I25.10 Atherosclerotic heart disease of native coronary artery without angina pectoris; E83.42 Hypomagnesemia
CPT/HCPCS: 36415; 80069; 85025

== ENCOUNTER → 2025-05-09 | Outpatient (CLI) | payer BC, MEDICARE, SELFPAY ==
[2025-05-09 08:52] LABS: Albumin, Serum 4.3 gm/dL (3.4-4.8); Anion Gap 13 (7-16); BUN/Creatinine Ratio 16 Ratio (12-20); Blood Urea Nitrogen 42 mg/dL (9-23); Calcium 9.4 mg/dL (8.3-10.6); Calcium (Corrected) 9.4 mg/dL (8.5-10.1); Carbon Dioxide 20.2 mMol/L (20.0-31.0); Chloride 108 mMol/L (98-107); Creatinine (Component) 2.6 mg/dL (0.6-1.3); Glucose 112 mg/dL (74-106); Osmolality,Calculated 292 (275-295); Phosphorous 4.0 mg/dL (2.4-5.1); Potassium 4.7 mMol/L (3.4-5.1); Sodium 141 mMol/L (136-145); eGFR 25 See Note
== END | disposition home or self-care (01) ==
LOC: COPL 06:38
PROVIDERS: PCP Family Medicine; Referring Provider Internal Medicine; Visit Provider Internal Medicine
DX: E11.22 Type 2 diabetes mellitus with diabetic chronic kidney disease (principal); N18.4 Chronic kidney disease, stage 4 (severe); I25.10 Atherosclerotic heart disease of native coronary artery without angina pectoris; E83.42 Hypomagnesemia
CPT/HCPCS: 36415; 80069

== ENCOUNTER → 2025-06-21 | Outpatient (CLI) | payer BC, MEDICARE, SELFPAY ==
[2025-06-21 08:36] LABS: Basophils # (Auto) 0.1 Thou/mm3 (0.0-0.2); Basophils % (Auto) 1 % (0-2.5); Eosinophils # (Auto) 0.2 Thou/mm3 (0.0-0.5); Eosinophils % (Auto) 2 % (0-10); Hematocrit 43.9 % (41.0-53.0); Hemoglobin 14.2 g/dL (13.5-16.0); Immature Granulocytes Auto 0.07 Thou/mm3 (0.00-0.00); Lymphocytes # (Auto) 2.1 Thou/mm3 (1.0-4.8); Lymphocytes % (Auto) 21 % (10-50); Mean Corpuscular HGB Conc 32.3 g/dl (31.0-37.0); Mean Corpuscular Hemoglobin 30.5 pg (25.0-35.0); Mean Corpuscular Volume 94 fL (80-100); Monocytes # (Auto) 0.8 Thou/mm3 (0.0-0.8); Monocytes % (Auto) 8 % (0-12); Neutrophils # (Auto) 6.9 Thou/mm3 (1.8-7.7); Neutrophils % (Auto) 68 % (37-80); Nucleated Red Blood Cell # 0.00 Thou/mm3 (0.00-0.00); Nucleated Red Blood Cell % 0 /100 WBC (0); Platelet Count 213 Thou/mm3 (140-440); RDW Standard Deviation 46.8 fL (35.1-43.9); Red Blood Count 4.66 Miln/mm3 (4.50-5.90); White Blood Count 10.1 Thou/mm3 (3.8-10.6)
[2025-06-21 08:58] LABS: Albumin, Serum 4.4 gm/dL (3.4-4.8); Anion Gap 9 (7-16); BUN/Creatinine Ratio 20 Ratio (12-20); Blood Urea Nitrogen 53 mg/dL (9-23); Calcium 9.7 mg/dL (8.3-10.6); Calcium (Corrected) 9.7 mg/dL (8.5-10.1); Carbon Dioxide 25.5 mMol/L (20.0-31.0); Chloride 107 mMol/L (98-107); Creatinine (Component) 2.7 mg/dL (0.6-1.3); Glucose 120 mg/dL (74-106); Magnesium 1.8 mg/dL (1.6-2.6); Osmolality,Calculated 296 (275-295); Phosphorous 4.5 mg/dL (2.4-5.1); Sodium 141 mMol/L (136-145); eGFR 24 See Note
[2025-06-21 09:00] LABS: Iron 73 mcg/dL (65-175); Percent Iron Saturation 32 % (20-55); Total Iron Binding Capacity 224 mcg/dL (250-425); Unsaturated Iron Binding 151 (225-295)
[2025-06-21 09:20] LABS: Potassium 6.1 mMol/L (3.4-5.1)
== END | disposition home or self-care (01) ==
LOC: COPL 06:44
PROVIDERS: PCP Family Medicine; Referring Provider Internal Medicine; Visit Provider Internal Medicine
DX: E11.22 Type 2 diabetes mellitus with diabetic chronic kidney disease (principal); N18.4 Chronic kidney disease, stage 4 (severe); I25.10 Atherosclerotic heart disease of native coronary artery without angina pectoris; E83.42 Hypomagnesemia
CPT/HCPCS: 36415; 80069; 83540; 83550; 83735; 85025

== ENCOUNTER → 2025-07-04 | Outpatient (CLI) | payer BC, MEDICARE, SELFPAY ==
[2025-07-04 08:46] LABS: Albumin, Serum 4.1 gm/dL (3.4-4.8); Anion Gap 10 (7-16); BUN/Creatinine Ratio 16 Ratio (12-20); Blood Urea Nitrogen 37 mg/dL (9-23); Calcium 9.7 mg/dL (8.3-10.6); Calcium (Corrected) 9.7 mg/dL (8.5-10.1); Carbon Dioxide 25.6 mMol/L (20.0-31.0); Chloride 109 mMol/L (98-107); Creatinine (Component) 2.3 mg/dL (0.6-1.3); Glucose 133 mg/dL (74-106); Osmolality,Calculated 299 (275-295); Phosphorous 4.1 mg/dL (2.4-5.1); Potassium 5.0 mMol/L (3.4-5.1); Sodium 145 mMol/L (136-145); eGFR 29 See Note
== END | disposition home or self-care (01) ==
LOC: COPL 06:54
PROVIDERS: PCP Internal Medicine; Referring Provider Family Medicine; Visit Provider Internal Medicine Cardiovascular Disease
DX: I25.118 Atherosclerotic heart disease of native coronary artery with other forms of angina pectoris (principal); E11.22 Type 2 diabetes mellitus with diabetic chronic kidney disease; N18.4 Chronic kidney disease, stage 4 (severe); I25.10 Atherosclerotic heart disease of native coronary artery without angina pectoris; E83.42 Hypomagnesemia
CPT/HCPCS: 36415; 80069